=== PATIENT | male | born 1950 | race Caucasian/White ===

== ENCOUNTER 2019-09-22 22:24 | Emergency (ER) | payer MEDICARE, MEDICAID ==
[~2019-09-22] VITALS: Ht 182 cm; Wt 115.0 kg
--- OUTSIDE RECORDS SUMMARY | 2019-09-22 22:35 | XMS REPORT | Continuity of Care Document ---
Author Organization Unknown Address Unknown Phone Unavailable Allergies There is no data. Medications There is no data. Problems There is no data. Procedures There is no data. Results There is no data. Encounters ACCT No. Visit Date/Time Discharge Status Pt. Type Provider Facility Loc./Unit Complaint [id number] 04/14/2019 08:00:00 04/14/2019 23:5 9:59 CLS Outpatient
[2019-09-22 23:00] LABS: BASOPHILS # (AUTO) 0.1 10^3/uL (0.0-0.1); BASOPHILS % (AUTO) 1 % (0-10); EOSINOPHILS # (AUTO) 0.1 10^3/uL (0.0-0.3); EOSINOPHILS % (AUTO) 1 % (0-10); HEMATOCRIT 36 % (40-54); HEMOGLOBIN 11.4 G/DL (13.3-17.7); LYMPHOCYTES # (AUTO) 3.8 X 10^3 (1.0-4.0); LYMPHOCYTES % (AUTO) 34 % (12-44); MEAN CORPUSCULAR HEMOGLOBIN 28 PG (25-34); MEAN CORPUSCULAR HGB CONC 31 G/DL (32-36); MEAN CORPUSCULAR VOLUME 89 FL (80-99); MEAN PLATELET VOLUME 9.5 FL (7.4-10.4); MONOCYTES # (AUTO) 1.6 X 10^3 (0.0-1.0); MONOCYTES % (AUTO) 15 % (0-12); NEUTROPHILS # (AUTO) 5.5 X 10^3 (1.8-7.8); NEUTROPHILS % (AUTO) 49 % (42-75); PLATELET COUNT 304 10^3/uL (130-400); RED CELL DISTRIBUTION WIDTH 14.2 % (10.0-14.5); WHITE BLOOD COUNT 11.2 10^3/uL (4.3-11.0)
[2019-09-22 23:18] LABS: INR 1.4 (0.8-1.4); PROTHROMBIN TIME PATIENT 17.1 SEC (12.2-14.7)
[2019-09-22 23:20] LABS: BUN/CREATININE RATIO 33; CALCIUM 8.8 MG/DL (8.5-10.1); CARBON DIOXIDE 25 MMOL/L (21-32); CHLORIDE 98 MMOL/L (98-107); CREATININE SERUM 0.69 MG/DL (0.60-1.30); GFR ESTIMATED > 60; GLUCOSE 147 MG/DL (70-105); POTASSIUM 4.4 MMOL/L (3.6-5.0); SODIUM 138 MMOL/L (135-145)
[2019-09-23 00:12] VITALS: BP 112/68
--- NOTE | 2019-09-23 05:50 | ED GU-Male ---
General Chief Complaint: - Urinary Stated Complaint: URINARY ISSUES Nursing Triage Note: Pt came from [facility] via [place] with bleeding from his penis. According to ems, [facility] staff tried to insert a catheter around 2129 tonight and returned to his room around 2144 and pt had blood coming from his penis. Upon arrival, bleeding had subsided. Source: patient Exam Limitations: clinical condition History of Present Illness Date Seen by Provider: September 23, 2019 Time Seen by Provider: 22:30 Initial Comments Patient is a 69-year-old prison patient who presents with urethral bleeding after traumatic Short catheter insertion at prison. Patient has blood at urethral meatus. Does not appear to be in distress. Is alert but confused. Bladder scan reveals no urine. Patient is not on anticoagulation therapy. Timing/Duration: just prior to arrival Severity/Quality: mild Location: urethral, other Radiation: none Activities at Onset: none Prior Genitourinary Problems: recent trauma Allergies and Home Medications Allergies Coded Allergies: Penicillins (Verified Allergy, Unknown, 09/22/19) morphine (Verified Allergy, Unknown, 09/22/19) tramadol (Verified Allergy, Unknown, 09/22/19) Patient Home Medication List Home Medication List Reviewed: Yes Review of Systems Review of Systems Constitutional: no symptoms reported EENTM: no symptoms reported Respiratory: no symptoms reported Cardiovascular: no symptoms reported Gastrointestinal: no symptoms reported Genitourinary: see HPI Musculoskeletal: no symptoms reported Skin: no symptoms reported Psychiatric/Neurological: No Symptoms Reported Endocrine: No Symptoms Reported Hematologic/Lymphatic: No Symptoms Reported Past Pfyggzd-Vdvvnd-Vqmwdw Hx Past Med/Social Hx: Reviewed Nursing Past Med/Soc Hx Patient Social History Alcohol Use: Denies Use Recreational Drug Use: No Smoking Status: Never a Smoker 2nd Hand Smoke Exposure: No Recent Foreign Travel: No Contact w/Someone Who Travel: No Recent Infectious Disease Expo: No Recent Hopitalizations: No Physical Abuse: No Sexual Abuse: No Past Medical History Surgeries: No Respiratory: No Cardiac: Yes Atrial Fibrillation, High Cholesterol, Hypertension Neurological: No Genitourinary: No Gastrointestinal: No Musculoskeletal: No Endocrine: Yes Diabetes, Non-Insulin dep HEENT: No Cancer: No Psychosocial: Yes Anxiety, Bipolar, Depression Integumentary: No Blood Disorders: No Physical Exam Vital Signs Vital Signs - First Documented 09/22/19 22:27 Temp 37.8 Pulse 65 Resp 16 B/P (MAP) 106/62 (77) Pulse Ox 94 O2 Delivery Room Air Capillary Refill : Less Than 3 Seconds Height, Weight, BMI Height: '" Weight: lbs. oz. kg; 34.00 BMI Method: General Appearance: WD/WN, no apparent distress HEENT: PERRL/EOMI, pharynx normal Neck: full range of motion Cardiovascular: regular rate, rhythm Respiratory: chest non-tender, lungs clear Gastrointestinal: non tender, soft Genital/Rectal: other (blood at urethral meatus, no active bleeding) Focused Exam Sepsis Stage: Ruled Out Progress/Results/Core Measures Suspected Sepsis Recent Fever Within 48 Hours: No Infection Criteria Present: None New/Unexplained Altered Menta: No Sepsis Screen: No Definite Risk SIRS Temperature: Pulse: 62 Respiratory Rate: 16 Laboratory Tests 09/22/19 22:54: White Blood Count 11.2H Blood Pressure 112 /68 Mean: 77 Laboratory Tests 09/22/19 22:54: Creatinine 0.69, INR Comment 1.4, Platelet Count 304 Results/Orders Lab Results Laboratory Tests Test 09/22/19 22:54 Range/Units White Blood Count 11.2 H 4.3-11.0 10^3/uL Red Blood Count 4.11 L 4.35-5.85 10^6/uL Hemoglobin 11.4 L 13.3-17.7 G/DL Hematocrit 36 L 40-54 % Mean Corpuscular Volume 89 80-99 FL Mean Corpuscular Hemoglobin 28 25-34 PG Mean Corpuscular Hemoglobin Concent 31 L 32-36 G/DL Red Cell Distribution Width 14.2 10.0-14.5 % Platelet Count 304 130-400 10^3/uL Mean Platelet Volume 9.5 7.4-10.4 FL Neutrophils (%) (Auto) 49 42-75 % Lymphocytes (%) (Auto) 34 12-44 % Monocytes (%) (Auto) 15 H 0-12 % Eosinophils (%) (Auto) 1 0-10 % Basophils (%) (Auto) 1 0-10 % Neutrophils # (Auto) 5.5 1.8-7.8 X 10^3 Lymphocytes # (Auto) 3.8 1.0-4.0 X 10^3 Monocytes # (Auto) 1.6 H 0.0-1.0 X 10^3 Eosinophils # (Auto) 0.1 0.0-0.3 10^3/uL Basophils # (Auto) 0.1 0.0-0.1 10^3/uL Prothrombin Time 17.1 H 12.2-14.7 SEC INR Comment 1.4 0.8-1.4 Sodium Level 138 135-145 MMOL/L Potassium Level 4.4 3.6-5.0 MMOL/L Chloride Level 98 98-107 MMOL/L Carbon Dioxide Level 25 21-32 MMOL/L Anion Gap 15 H 5-14 MMOL/L Blood Urea Nitrogen 23 H 7-18 MG/DL Creatinine 0.69 0.60-1.30 MG/DL Estimat Glomerular Filtration Rate > 60 BUN/Creatinine Ratio 33 Glucose Level 147 H 70-105 MG/DL Calcium Level 8.8 8.5-10.1 MG/DL My Orders Orders - DESHAUN LEARY DO Bladder Scan (09/22/19 22:35) Cbc With Automated Diff (09/22/19 22:35) Basic Metabolic Panel (09/22/19 22:35) Protime With Inr (09/22/19 22:35) Vital Signs/I&O 09/22/19 09/23/19 22:27 00:12 Temp 37.8 Pulse 65 62 Resp 16 16 B/P (MAP) 106/62 (77) 112/68 (77) Pulse Ox 94 92 O2 Delivery Room Air Capillary Refill : Less Than 3 Seconds Blood Pressure Mean: 77 Departure Communication (Admissions) Patient is able to urinate prior to ED departure. Will return to prison with urology follow-up as needed Impression Primary Impression: Urethral trauma Disposition: 01 HOME, SELF-CARE Condition: Stable/Unchanged Departure-Patient Inst. Add. Discharge Instructions: Juancarlos was evaluated in the ED for bleeding around his urethra. The bleeding has stopped and a bladder scan does not show evidence of urinary retention. All discharge instructions reviewed with patient and/or family. Voiced understanding. DESHAUN LEARY DO September 23, 2019 05:50
== END 2019-09-23 00:20 | disposition home or self-care (01) ==
LOC: EDUNIT# 22:24 → ER FS 22:25
DX: S37.39XA Other injury of urethra, initial encounter (principal); E11.9 Type 2 diabetes mellitus without complications; Z88.0 Allergy status to penicillin; Z88.5 Allergy status to narcotic agent; Y73.2 Prosthetic and other implants, materials and accessory gastroenterology and urology devices associated with adverse incidents; Y92.129 Unspecified place in nursing home as the place of occurrence of the external cause
CPT/HCPCS: 36415; 80048; 85025; 85610; 99283

== ENCOUNTER → 2019-09-22 | Outpatient (CLI) | payer SELFPAY ==
[2019-09-22 19:09] LABS: BACTERIA,URINE FEW /HPF; BILIRUBIN,URINE NEGATIVE (NEGATIVE); CLARITY,URINE CLEAR; COLOR,URINE YELLOW; GLUCOSE, URINE (UA) NEGATIVE (NEGATIVE); KETONES,URINE NEGATIVE (NEGATIVE); LEUKOCYTE ESTERASE ,URINE NEGATIVE (NEGATIVE); NITRITE,URINE NEGATIVE (NEGATIVE); PH,URINE 5.5 (5-9); PROTEIN,URINE NEGATIVE (NEGATIVE)
== END ==
LOC: LAB FS 18:41
PROVIDERS: ATTEND Pediatrics
DX: R35.0 Frequency of micturition (principal); R30.0 Dysuria; R31.9 Hematuria, unspecified
CPT/HCPCS: 81000; 87088

== ENCOUNTER 2020-01-11 21:16 | Inpatient (IN) | payer MEDICARE, MEDICAID ==
[~2020-01-11] VITALS: Ht 182 cm; Wt 104.5 kg
--- NOTE | 2020-01-11 21:29 | ED Dyspnea ---
General Stated Complaint: SOB Source of Information: EMS Exam Limitations: Other (pt condition) History of Present Illness Date Seen by Provider: Jan 11, 2020 Time Seen by Provider: 21:15 Initial Comments The patient is a 69-year-old male brought in by EMS from prison for evaluation of shortness of breath, fever, and general malaise. [facility] report a cough and some shortness of breath over the last 24 hours which progressively worsen this evening. When EMS arrived the patient's saturation was approximately 82%. The patient is normally alert and talkative but has been less active this evening. 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 EMS reports an axillary temperature of just over 100F. He was given a DuoNeb in route and his oxygen saturation is 98% upon arrival. EMS reports that his workup breathing has improved significantly. Severity: Moderate Modifying Factors: Improves With Albuterol Nebulizer (helps), Improves With Oxygen (helps) Associated Symptoms: Cough, Fever, Weakness Allergies and Home Medications Allergies Coded Allergies: Penicillins (Verified Allergy, Unknown, 09/22/19) morphine (Verified Allergy, Unknown, 09/22/19) tramadol (Verified Allergy, Unknown, 09/22/19) Patient Home Medication List Home Medication List Reviewed: Yes Review of Systems Review of Systems Constitutional: fever, malaise, weakness EENTM: no symptoms reported Respiratory: cough, short of breath Cardiovascular: no symptoms reported Gastrointestinal: no symptoms reported Genitourinary: no symptoms reported Musculoskeletal: no symptoms reported Skin: no symptoms reported Psychiatric/Neurological: No Symptoms Reported Endocrine: No Symptoms Reported Hematologic/Lymphatic: No Symptoms Reported All Other Systems Reviewed Negative Unless Noted: Yes Past Iqrsfnf-Yhticu-Lzlprx Hx Past Med/Social Hx: Reviewed Nursing Past Med/Soc Hx Patient Social History 2nd Hand Smoke Exposure: No Recent Foreign Travel: No Contact w/Someone Who Travel: No Recent Hopitalizations: No Past Medical History Surgeries: No Respiratory: No Cardiac: Yes Atrial Fibrillation, High Cholesterol, Hypertension Neurological: No Genitourinary: No Gastrointestinal: No Musculoskeletal: No Endocrine: Yes Diabetes, Non-Insulin dep HEENT: No Cancer: No Psychosocial: Yes Anxiety, Bipolar, Depression Integumentary: No Blood Disorders: No Physical Exam Vital Signs Vital Signs - First Documented 01/11/20 22:09 Temp 37.0 Pulse 133 Resp 18 B/P (MAP) 134/88 (103) Pulse Ox 98 O2 Delivery Nasal Cannula O2 Flow Rate 4.00 Capillary Refill : Height, Weight, BMI Height: '" Weight: lbs. oz. kg; 34.00 BMI Method: General Appearance: No Apparent Distress, WD/WN HEENT: PERRL/EOMI, Pharynx Normal Neck: Full Range of Motion, Normal Inspection, Supple Respiratory: Normal Breath Sounds; No No Respiratory Distress; Respiratory Distress (mild), Other (tachypnea) Cardiovascular: Irregularly Irregular, Tachycardia Gastrointestinal: Normal Bowel Sounds, Non Tender, Soft Extremity: Normal Capillary Refill, Normal Inspection, Normal Range of Motion Neurologic/Psychiatric: Alert, No Motor/Sensory Deficits, Normal Mood/Affect Skin: Warm/Dry, Pallor Focused Exam Lactate Level 01/11/20 21:35: Lactic Acid Level 1.63 Lactic Acid Level Laboratory Tests Test 01/11/20 21:35 Lactic Acid Level 1.63 MMOL/L (0.50-2.00) Progress/Results/Core Measures Results/Orders Lab Results Laboratory Tests Test 01/11/20 21:30 01/11/20 21:35 Range/Units White Blood Count 16.5 H 4.3-11.0 10^3/uL Red Blood Count 4.00 L 4.35-5.85 10^6/uL Hemoglobin 11.2 L 13.3-17.7 G/DL Hematocrit 36 L 40-54 % Mean Corpuscular Volume 91 80-99 FL Mean Corpuscular Hemoglobin 28 25-34 PG Mean Corpuscular Hemoglobin Concent 31 L 32-36 G/DL Red Cell Distribution Width 15.3 H 10.0-14.5 % Platelet Count 451 H 130-400 10^3/uL Mean Platelet Volume 8.7 7.4-10.4 FL Neutrophils (%) (Auto) 52 42-75 % Lymphocytes (%) (Auto) 35 12-44 % Monocytes (%) (Auto) 10 0-12 % Eosinophils (%) (Auto) 2 0-10 % Basophils (%) (Auto) 1 0-10 % Neutrophils # (Auto) 8.7 H 1.8-7.8 X 10^3 Lymphocytes # (Auto) 5.8 H 1.0-4.0 X 10^3 Monocytes # (Auto) 1.6 H 0.0-1.0 X 10^3 Eosinophils # (Auto) 0.2 0.0-0.3 10^3/uL Basophils # (Auto) 0.1 0.0-0.1 10^3/uL Neutrophils % (Manual) 50 % Lymphocytes % (Manual) 42 % Monocytes % (Manual) 5 % Eosinophils % (Manual) 2 % Basophils % (Manual) 0 % Band Neutrophils 1 % Sodium Level 134 L 135-145 MMOL/L Potassium Level 4.0 3.6-5.0 MMOL/L Chloride Level 98 98-107 MMOL/L Carbon Dioxide Level 24 21-32 MMOL/L Anion Gap 12 5-14 MMOL/L Blood Urea Nitrogen 24 H 7-18 MG/DL Creatinine 0.67 0.60-1.30 MG/DL Estimat Glomerular Filtration Rate > 60 BUN/Creatinine Ratio 36 Glucose Level 121 H 70-105 MG/DL Lactic Acid Level 1.63 0.50-2.00 MMOL/L Calcium Level 8.9 8.5-10.1 MG/DL Corrected Calcium 9.5 8.5-10.1 MG/DL Total Bilirubin 0.3 0.1-1.0 MG/DL Aspartate Amino Transf (AST/SGOT) 8 5-34 U/L Alanine Aminotransferase (ALT/SGPT) < 5 0-55 U/L Alkaline Phosphatase 93 40-136 U/L Troponin I < 0.30 <0.30 NG/ML Pro-B-Type Natriuretic Peptide 809.1 H <75.0 PG/ML Total Protein 7.3 6.4-8.2 GM/DL Albumin 3.2 3.2-4.5 GM/DL My Orders Orders - MEMO RUSHING DO Cbc With Automated Diff (01/11/20 21:24) Comprehensive Metabolic Panel (01/11/20 21:24) Lactic Acid Analyzer (01/11/20 21:24) Procalcitonin (Pct) (01/11/20 21:24) Ua Culture If Indicated (01/11/20 21:24) Blood Culture (01/11/20 21:24) Ekg Tracing (01/11/20 21:24) Continuous Ekg Monitoring (01/11/20 21:24) Troponin I Fs (01/11/20 21:24) Probnp Fs (01/11/20 21:24) Chest 1 View Ap/Pa Only (01/11/20 21:24) Coronavirus Sars-Cov-2 So 2019 (01/11/20 21:24) Acetaminophen Tablet (Tylenol Tablet) (01/11/20 21:30) Ns Iv 1000 Ml (Sodium Chloride 0.9%) (01/11/20 21:30) Blood Culture (01/11/20 21:30) Manual Differential (01/11/20 21:35) Dexamethasone Injection (Decadron Injec (01/11/20 22:30) Azithromycin Injection (Zithromax Inject (01/11/20 22:30) Crp Fs (01/11/20 21:30) Medications Given in ED Current Medications Medications Dose Ordered Sig/Trini Route Start Time Stop Time Status Last Admin Dose Admin Acetaminophen 1,000 mg ONCE ONCE PO 01/11/20 21:30 01/11/20 21:31 DC 01/11/20 21:42 1,000 MG Vital Signs/I&O 01/11/20 22:09 Temp 37.0 Pulse 133 Resp 18 B/P (MAP) 134/88 (103) Pulse Ox 98 O2 Delivery Nasal Cannula O2 Flow Rate 4.00 Progress Progress Note : Progress Note @2225 - patient updated on lab and imaging results. He is agreeable to admission. Dr. Artis excepts the admission at [facility]. She would like a dose of Decadron and azithromycin to be given. She would like the patient admitted to [facility] with telemetry monitoring. Comment @2144 - Atrial fibrillation with a rapid ventricular response, rate of 133, normal axis, no acute ischemic findings noted, no STEMI, reviewed and interpreted by myself Diagnostic Imaging Diagonstic Imaging: Xray Comments [facility]. [place], [place] NAME: NATALIA LEZAMABETY Jarrell [facility] REC#: [id number] PT STATUS: REG ER : 1950 PHYSICIAN: MEMO RUSHING DO ADMIT DATE: 01/11/20/ER FS Draft Date of Exam:01/11/20 CHEST 1 VIEW AP/PA ONLY EXAM: Chest 1 view AP/PA only INDICATION: Fever. Dyspnea. Respiratory distress. COMPARISON: None. FINDINGS: Heart size is accentuated by low lung volumes. Normal central pulmonary vascularity. No focal pulmonary opacity, pleural effusion or pneumothorax. No acute osseous finding. IMPRESSION: Low lung volumes. Chest is otherwise unremarkable. Dictated on workstation # [id number] Dict: 01/11/202152 Trans: 01/11/202155 [facility] [id number] Interpreted by: AARON ACBA MD Electronically signed by: Critical Care Note Critical Care Start Time: 21:40 Stop Time: 22:20 Total Time (minutes) 40 Progress Interpretation of lab and imaging results, arranging admission and discussion with consultants, evaluating response to treatment, prevention of respiratory and cardiac failure Departure Communication (Admissions) Time/Spoke to Admitting Phy: 22:35 Dr. Artis accepts the admission to [facility] Impression Primary Impression: Acute respiratory failure Additional Impression: Atrial fibrillation with RVR Disposition: ADMITTED INPATIENT Condition: Stable Admissions Decision to Admit Reason: Admit from ER (General) Decision to Admit/Date: Jan 11, 2020 Time/Decision to Admit Time: 22:25 Departure-Patient Inst. Referrals: RONAL VYAS MD (PCP/Family) Primary Care Physician MEMO RUSHING DO Jan 11, 2020 21:29
[2020-01-11] MEDS ORDERED: NS IV 1000 ML 1,000 ML IV SCH (21:30)
[2020-01-11] MEDS ORDERED: ACETAMINOPHEN 500 MG TAB (TYLENOL) PO ONE (21:30)
[2020-01-11 21:46] LABS: BASOPHILS % (AUTO) 1 % (0-10); EOSINOPHILS % (AUTO) 2 % (0-10); HEMATOCRIT 36 % (40-54); HEMOGLOBIN 11.2 G/DL (13.3-17.7); LYMPHOCYTES % (AUTO) 35 % (12-44); MEAN CORPUSCULAR HEMOGLOBIN 28 PG (25-34); MEAN CORPUSCULAR HGB CONC 31 G/DL (32-36); MEAN CORPUSCULAR VOLUME 91 FL (80-99); MEAN PLATELET VOLUME 8.7 FL (7.4-10.4); MONOCYTES % (AUTO) 10 % (0-12); NEUTROPHILS % (AUTO) 52 % (42-75); PLATELET COUNT 451 10^3/uL (130-400); WHITE BLOOD COUNT 16.5 10^3/uL (4.3-11.0)
[2020-01-11 21:47] LABS: BASOPHILS # (AUTO) 0.1 10^3/uL (0.0-0.1); EOSINOPHILS # (AUTO) 0.2 10^3/uL (0.0-0.3); LYMPHOCYTES # (AUTO) 5.8 X 10^3 (1.0-4.0); MONOCYTES # (AUTO) 1.6 X 10^3 (0.0-1.0); NEUTROPHILS # (AUTO) 8.7 X 10^3 (1.8-7.8)
--- NOTE | 2020-01-11 21:56 | Diagnostic Imaging Report ---
EXAM: Chest 1 view AP/PA only INDICATION: Fever. Dyspnea. Respiratory distress. COMPARISON: None. FINDINGS: Heart size is accentuated by low lung volumes. Normal central pulmonary vascularity. No focal pulmonary opacity, pleural effusion or pneumothorax. No acute osseous finding. IMPRESSION: Low lung volumes. Chest is otherwise unremarkable. Dictated by: Dictated on workstation # [id number]
[2020-01-11 22:02] LABS: BAND NEUTROPHILS 1 %; BASOPHILS % (MANUAL) 0 %; EOSINOPHILS % (MANUAL) 2 %; LYMPHOCYTES % (MANUAL) 42 %; MONOCYTES % (MANUAL) 5 %; NEUTROPHILS % (MANUAL) 50 %
[2020-01-11 22:13] LABS: ALANINE AMINOTRANSFERASE < 5 U/L (0-55); ALKALINE PHOSPHATASE 93 U/L (40-136); BILIRUBIN,TOTAL 0.3 MG/DL (0.1-1.0); BUN/CREATININE RATIO 36; CALCIUM 8.9 MG/DL (8.5-10.1); CARBON DIOXIDE 24 MMOL/L (21-32); CHLORIDE 98 MMOL/L (98-107); CREATININE SERUM 0.67 MG/DL (0.60-1.30); GFR ESTIMATED > 60; GLUCOSE 121 MG/DL (70-105); SODIUM 134 MMOL/L (135-145)
[2020-01-11 22:14] LABS: ALBUMIN 3.2 GM/DL (3.2-4.5); TOTAL PROTEIN 7.3 GM/DL (6.4-8.2)
[2020-01-11] MEDS ORDERED: AZITHROMYCIN INJECTION 500 MG in NS (IVPB) 250 ML IV ONE (22:30)
[2020-01-12] MEDS ORDERED: NS IV 1000 ML 1,000 ML ONE (00:47)
[2020-01-12 01:02] VITALS: BP 102/60
[2020-01-12] MEDS ORDERED: NS IV 1000 ML 1,000 ML IV SCH (03:30)
[2020-01-12 03:49] VITALS: BP 130/71
[2020-01-12 06:20] LABS: BASOPHILS % (AUTO) 0 % (0-10); EOSINOPHILS % (AUTO) 0 % (0-10); HEMATOCRIT 34 % (40-54); HEMOGLOBIN 10.6 G/DL (13.3-17.7); LYMPHOCYTES # (AUTO) 0.9 X 10^3 (1.0-4.0); LYMPHOCYTES % (AUTO) 9 % (12-44); MEAN CORPUSCULAR HEMOGLOBIN 29 PG (25-34); MEAN CORPUSCULAR HGB CONC 32 G/DL (32-36); MEAN CORPUSCULAR VOLUME 91 FL (80-99); MEAN PLATELET VOLUME 9.2 FL (7.4-10.4); MONOCYTES # (AUTO) 0.2 X 10^3 (0.0-1.0); MONOCYTES % (AUTO) 2 % (0-12); NEUTROPHILS # (AUTO) 9.3 X 10^3 (1.8-7.8); NEUTROPHILS % (AUTO) 89 % (42-75); PLATELET COUNT 362 10^3/uL (130-400); WHITE BLOOD COUNT 10.5 10^3/uL (4.3-11.0)
[2020-01-12 06:28] LABS: ALBUMIN 3.3 GM/DL (3.2-4.5)
[2020-01-12 06:29] LABS: CHLORIDE 106 MMOL/L (98-107); POTASSIUM 4.2 MMOL/L (3.6-5.0); SODIUM 138 MMOL/L (135-145)
[2020-01-12 06:30] LABS: CALCIUM 8.6 MG/DL (8.5-10.1)
[2020-01-12 06:31] LABS: GLUCOSE 109 MG/DL (70-105); TOTAL PROTEIN 6.2 GM/DL (6.4-8.2)
[2020-01-12 06:32] LABS: CARBON DIOXIDE 21 MMOL/L (21-32)
[2020-01-12 06:33] LABS: BILIRUBIN,TOTAL 0.5 MG/DL (0.1-1.0)
[2020-01-12 06:35] LABS: ALKALINE PHOSPHATASE 99 U/L (40-136); CREATININE SERUM 0.86 MG/DL (0.60-1.30); GFR ESTIMATED > 60
[2020-01-12 06:36] LABS: BUN/CREATININE RATIO 21
[2020-01-12 06:38] LABS: ALANINE AMINOTRANSFERASE 33 U/L (0-55)
[2020-01-12 07:19] VITALS: BP 127/74
[2020-01-12] MEDS ORDERED: MAGN400T39 PO (08:56)
[2020-01-12] MEDS ORDERED: LORA10TA7 PO (08:56)
[2020-01-12] MEDS ORDERED: GLYC1SUP RC (08:56)
[2020-01-12] MEDS ORDERED: QUET100T33 PO (08:56)
[2020-01-12] MEDS ORDERED: LACT10SO PO (08:56)
[2020-01-12] MEDS ORDERED: FLUT16SP22 NSEACH (08:56)
[2020-01-12] MEDS ORDERED: ALLO300T2 PO (08:56)
[2020-01-12] MEDS ORDERED: GABA300C PO (08:56)
[2020-01-12] MEDS ORDERED: LORA-405 PO (08:56)
[2020-01-12] MEDS ORDERED: DILT240C91 PO (08:56)
[2020-01-12] MEDS ORDERED: METH500T7 PO (08:56)
[2020-01-12] MEDS ORDERED: HYDR-4164 PO (08:56)
[2020-01-12] MEDS ORDERED: POTA20TA15 PO (08:56)
[2020-01-12] MEDS ORDERED: ACET-2267 PO (08:56)
[2020-01-12] MEDS ORDERED: AMIT50TA3 PO (08:56)
[2020-01-12] MEDS ORDERED: DOCU100T2 PO (08:56)
[2020-01-12] MEDS ORDERED: CYAN500T62 PO (08:56)
[2020-01-12] MEDS ORDERED: OXCA300T18 PO (08:56)
[2020-01-12] MEDS ORDERED: METF-397 PO (08:56)
[2020-01-12] MEDS ORDERED: HYDR25SU28 RC (08:56)
[2020-01-12] MEDS ORDERED: DICL100G31 TD (08:56)
[2020-01-12] MEDS ORDERED: APIX5TAB PO (08:56)
[2020-01-12] MEDS ORDERED: ATOR10TA66 PO (08:56)
[2020-01-12] MEDS ORDERED: OLOP2.5D6 OU (08:56)
[2020-01-12] MEDS ORDERED: FURO20TA4 PO (08:56)
[2020-01-12] MEDS ORDERED: SENN1TAB67 PO (08:56)
[2020-01-12] MEDS ORDERED: OMEP20CA18 PO (08:56)
[2020-01-12] MEDS ORDERED: HYDR20TA2 PO (08:56)
[2020-01-12] MEDS ORDERED: METO50TA15 PO (08:56)
[2020-01-12] MEDS ORDERED: POLY17PO31 PO (08:56)
--- NOTE | 2020-01-12 09:06 | NUR ---
THE MED REC WAS ENTERED USING THE ORDER SUMMARY REPORT FROM [facility] THERE WERE MEDS ON THE EXT MED HISTORY THAT HAD BEEN FILLED IN DECEMBER 2019 THAT WERE NOT LISTED WITH [employer]. I CALLED THE FACILITY AND SPOKE WITH CARLITA WHO LET ME KNOW THAT ON 12-26-2019 THE PT WAS TRANSFERRED TO [facility] IN [place] FROM [facility] AND THEN WENT BACK TO [facility] ON 01-03-2020. WHILE AT [place] THERE WERE MULTIPLE MEDICATIONS THAT WERE DISCONTINUED (DULOXETINE, CARBIDOPA/LEVODOPA, DEPAKOTE).
[2020-01-12 10:58] VITALS: BP 120/62
--- NOTE | 2020-01-12 11:03 | NUR ---
Received dietary consult for MST score. Note pt is currently COVID PUI. Will monitor PO intake and have full assessment on 01/14. Rodrick Fong, MS, RD, LD
[2020-01-12] MEDS ORDERED: ACETAMINOPHEN 500 MG TAB (TYLENOL) PO PRN (11:30)
[2020-01-12] MEDS ORDERED: LACTULOSE 10 GM/15 ML 30 ML POUR BOTTLE FOR ENEMA PO PRN (11:30)
[2020-01-12] MEDS ORDERED: polyethylene glycoL POWDER 17 GM (MIRALAX) PACK PO PRN (11:30)
[2020-01-12] MEDS ORDERED: LACTULOSE SYRUP 10GM/15ML (ENULOSE) 30ML UDC PO PRN (12:30)
[2020-01-12] MEDS: GABAPENTIN 300 MG (NEURONTIN) CAP PO SCH ×2 (12:39→20:50)
--- NOTE | 2020-01-12 14:55 | History & Physical-Hospitalist ---
History of Present Illness HPI/Chief Complaint Pt is a 69yoCM with a PMH of COPD, HTN, atrial fibrillation who presented to the ER due to cough and SOB for the past 24 hours. He was brought in by EMS due to oxygen sats of 82%. He was confused as well which is unlike him. He reported had an axillary temp of over 100 as well. He is from a [facility] with one known positive C OVID case. He states that he is feeling much better today and breathing easier. 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 Source: patient Date Seen 01/12/20 Time Seen by a Provider: 14:46 Attending Physician Orly Artis MD PCP Sampson Hudson MD Referring Physician Date of Admission Jan 11, 2020 at 22:25 Home Medications & Allergies Home Medications Reviewed patient Home Medication Reconciliation performed by pharmacy medication reconciliations hydroelectric plant technician and/or nursing. Patients Allergies have been reviewed. Allergies Allergies Coded Allergies Penicillins (Verified Allergy, Unknown, 09/22/19) morphine (Verified Allergy, Unknown, 09/22/19) tramadol (Verified Allergy, Unknown, 09/22/19) Past Jfykjqe-Luidub-Iewhuz Hx Past Med/Social Hx: Reviewed Nursing Past Med/Soc Hx Patient Social History Employed/Student: retired Alcohol Use: Denies Use Recreational Drug Use: No Smoking Status: Never a Smoker 2nd Hand Smoke Exposure: No Recent Foreign Travel: No Recent Hopitalizations: No Past Medical History Cardiac: Atrial Fibrillation, High Cholesterol, Hypertension Endocrine: Diabetes, Non-Insulin dep Psychosocial: Anxiety, Bipolar, Depression History of Blood Disorders: No Family History Reviewed Nursing Family Hx No Pertinent Family Hx Review of Systems Constitutional: fever, malaise Respiratory: cough, short of breath Cardiovascular: No chest pain, No palpitations Gastrointestinal: No abdominal pain, No constipation, No loss of appetite, No nausea, No vomiting Genitourinary: No dysuria, No frequency Musculoskeletal: no symptoms reported Skin: no symptoms reported Psychiatric/Neurological: No Symptoms Reported Physical Exam Physical Exam Vital Signs Vital Signs - First Documented 01/11/20 22:09 Temp 37.0 Pulse 133 Resp 18 B/P (MAP) 134/88 (103) Pulse Ox 98 O2 Delivery Nasal Cannula O2 Flow Rate 4.00 Capillary Refill : Less Than 3 Seconds Height, Weight, BMI Height: '" Weight: lbs. oz. kg; 31.54 BMI Method: General Appearance: No Apparent Distress, Chronically ill, Obese HEENT: PERRL/EOMI, Moist Mucous Membranes; No Scleral Icterus (L), No Scleral Icterus (R) Neck: Normal Inspection, Supple Respiratory: Lungs Clear, No Accessory Muscle Use, Other (on 2lpm) Cardiovascular: Regular Rate, Rhythm, No Murmur Gastrointestinal: Normal Bowel Sounds, No Organomegaly, Soft Extremity: No Calf Tenderness, No Pedal Edema Neurologic/Psychiatric: Alert, Oriented x3, Normal Mood/Affect Skin: Normal Color, Warm/Dry Results Results/Procedures Labs Laboratory Tests 01/11/20 21:35 01/12/20 05:33 Patient resulted labs reviewed. Assessment/Plan Admission Diagnosis Acute Hypoxic Respiratory Failure COPD Exacerbation COVID PUI Continue steroids MAT protocol Advair COVID pending Wean oxygen as able a-fib with RVR rate controlled from ER Continue Lopressor and Cardizem Continue Eliquis HTN neuropathy HLD Gout no acute management needs, continue home meds Admission Status: Inpatient Order (span 2 midnights) Reason for Inpatient Admission: see above Clinical Quality Measures DVT/VTE Risk/Contraindication: Risk Factor Score Per Nursin RFS Level Per Nursing on Admit: 4+=Very High NARA KEE MD Jan 12, 2020 14:55
--- NOTE | 2020-01-12 15:56 | Occupational Therapy Eval ---
OT Evaluation-General/PLF Medical Diagnosis Admission Date Jan 11, 2020 at 22:25 Medical Diagnosis: SOB; AMS Onset Date: Jan 12, 2020 Therapy Diagnosis Therapy Diagnosis: Decreased ADL status Precautions Precautions/Isolations: Droplet Isolation, Fall Prevention, Standard Precautions Referral Physician: Lottie Referral Reason: Activity Tolerance, Self Care, Evaluation/Treatment, Strengthening/ROM Medical History Pertinent Medical History: Atrial Fib, DM, HTN Additional Medical History COPD, HTN, a fib, NIDDM, neuropathy, acute respiratory failure, anx/ depression, bipolar disorder. Current History Pt admits from [place] to [place] with c/o SOB, fever, malaide for ~24 hours. Per [place] staff, 02 sats in low 80's. Pt had 100* temp, AMS. Exposed to COVID through staff, PUI at this time. Reviewed History: Yes Social History Home: [facility] ADL-Prior Level of Function SCALE: Activities may be completed with or without assistive devices. 6-Ihzkxqojoh-mxxnhpz completes the activity by him/herself with no assistance from a helper. 5-Set-up or Clean-up Assistance-helper sets up or cleans up; patient completes activity. [place] assists only prior to or following the activity. 4-Supervision or Touching Assistance-helper provides verbal cues and/or touching/steadying and/or contact guard assistance as patient completes activity. Assistance may be provided throughout the activity or intermittently. 3-Partial/Moderate Assistance-helper does LESS THAN HALF the effort. [place] lifts, holds or supports trunk or limbs, but provides less than half the effort. 2-Substantial/Maximal Assistance-helper does MORE THAN HALF the effort. [place] lifts or holds trunk or limbs and provides more than half the effort. 2-Quxvjadhg-uxfrxh does ALL the effort. Patient does none of the effort to complete the activity. Or, the assistance of 2 or more helpers is required for the patient to complete the activity. If activity was not attempted, code reason: 7-Patient Refused. 9-Not Applicable-not attempted and the patient did not perform the activity be fore the current illness, exacerbation or injury. 10-Not Attempted due to Environmental Limitations-(lack of equipment, weather restraints, etc.). 88-Not Attempted due to Medical Conditions or Safety Concerns. ADL PLOF Comments Pt unable to state PLOF. Pt talkative, though does not answer direct questions at times and is difficult to redirect. Self Care: Unknown Functional Cognition: Needed Some Help DME/Equipment Comments w/c (in room). Occupation: retired. Drive Self: No OT Current Status Subjective Pt's nurses notified of orders, agree to OT entry. Pt in bed, alert/ oriented to person/ place/ situation though requires redirection through session. Pt agrees to OT eval/ treat. Denies pain, then grimaces during movement. Mental Status/Objective Patient Orientation: Person, Place, Situation Attachments: IV, Oxygen (2L) Current Glasses/Contacts: No Hearing Aids: No Dentures/Partials: No Hand Dominance: Right Upper Extremity ROM shoulder flexion to 90*, unable to hold for prolonged time EOB all other joints WFL Upper Extremity Coordination WFL BUE Upper Extremity Sensation DNT Upper Extremity Strength Decreased UE strength (3/5) Edema: none noted. ADL-Treatment On/Off Footwear (QC): 10 (Pt typically utilizes sock aide and dressing stick for sock doff/ donning.) Toileting Hygiene (QC): 1 (per clinical judgment, requirement of 2 clinicians for completion.) Other Treatments Pt seen in bed. Pt educated on OT role. Pt receives 23/11 care. States hx of back/ cervical surgeries. Decreased vision, states need to scan room during tasks. Pt utilizes AE for LB dressing tasks, states has not ambulated in months, utilizes w/c at [place]. Pt requires encouragement for movement, reaches EOB with max A. Pt sits for ~5 min, no c/o SOB, talks throughout. Pt able to stand upon 2 trials with max A x2, pt stands for ~10 sec and requests to sit. Pt max A x2 to return to bed with control. Pt is adjusted in bed and pillow under L side for pressure relief. Education OT Patient Education: Correct positioning, Purpose of tx/functional activities, Safety issues, Transfer techniques Teaching Recipient: Patient Teaching Methods: Demonstration, Discussion Response to Teaching: Verbalize Understanding, Return Demonstration, Reinforcement Needed OT Correction Goals Banking Attorney Goals Time Frame: Jan 19, 2020 Eating (QC): 4 Oral Hygiene (QC): 4 Toileting Hygiene (QC): 2 Shower/Bathe Self (QC): 2 Upper Body Dressing (QC): 4 Lower Body Dressing (QC): 2 On/Off Footwear (QC): 6 (mod I with use of AE) Additional Goals: 1-Demonstrate ADL Tasks, 2-Verbalize Understanding, 3- ImproveStrength/Lissett 1=Demonstrate adherence to instructed precautions during ADL tasks. 2=Patient will verbalize/demonstrate understanding of assistive devices/modifications for ADL. 3=Patient will improve strength/tolerance for activity to enable patient to perform ADL's. OT Education/Plan Problem List/Assessment Assessment: Decreased Activ Tolerance, Decreased UE Strength, Dependent Transfers, Impaired Bed Mobility, Impaired Cognition, Impaired Funct Balance, Impaired I ADL's, Impaired Self-Care Skills, Visual-Perceptual Deficit Discharge Recommendations Plan/Recommendations: Continue POC Therapy Discharge Recommendati: 24 Hour Supervision Treatment Plan/Plan of Care Treatment,Training & Education: Yes Patient would benefit from OT for education, treatment and training to promote independence in ADL's, mobility, safety and/or upper extremity function for ADL's. Plan of Care: ADL Retraining, Functional Mobility, UE Funct Exercise/Act, W/C Management Training Treatment Duration: Jan 19, 2020 Frequency: 5 times per week Estimated Hrs Per Day: .25 hour per day Agreement: Yes Rehab Potential: Fair Time/GCodes Start Time: 15:30 Stop Time: 15:43 Total Time Billed (hr/min): 13 Billed Treatment Time 1MANJEET (13) SEEMA GOYAL OTR Jan 12, 2020 15:55
[2020-01-12 15:57] VITALS: BP 115/62
--- NOTE | 2020-01-12 16:02 | Physical Therapy Evaluation ---
PT Evaluation-General Medical Diagnosis Admission Date Jan 11, 2020 at 22:25 Medical Diagnosis: SOB Onset Date: Jan 11, 2020 Therapy Diagnosis Therapy Diagnosis: impaired mobility, strength, endurance Precautions Precautions/Isolations: Droplet Isolation, Fall Prevention, Standard Precautions Referral Physician: Lottie Reason for Referral: Evaluation/Treatment Medical History Pertinent Medical History: COPD, HTN Additional Medical History Past Medical History Cardiac: Atrial Fibrillation, High Cholesterol, Hypertension Endocrine: Diabetes, Non-Insulin dep Psychosocial: Anxiety, Bipolar, Depression Reviewed History: Yes Social History Home: [facility] Prior Prior Level of Function SCALE: Activities may be completed with or without assistive devices. 6-Zyxrrbkskl-nrusqof completes the activity by him/herself with no assistance from a helper. 5-Set-up or Clean-up Assistance-helper sets up or cleans up; patient completes activity. [place] assists only prior to or following the activity. 4-Supervision or Touching Assistance-helper provides verbal cues and/or touching/steadying and/or contact guard assistance as patient completes activity. Assistance may be provided throughout the activity or intermittently. 3-Partial/Moderate Assistance-helper does LESS THAN HALF the effort. [place] lifts, holds or supports trunk or limbs, but provides less than half the effort. 2-Substantial/Maximal Assistance-helper does MORE THAN HALF the effort. [place] lifts or holds trunk or limbs and provides more than half the effort. 1-Otoxfetkb-obrcqb does ALL the effort. Patient does none of the effort to complete the activity. Or, the assistance of 2 or more helpers is required for the patient to complete the activity. If activity was not attempted, code reason: 7-Patient Refused. 9-Not Applicable-not attempted and the patient did not perform the activity before the current illness, exacerbation or injury. 10-Not Attempted due to Environmental Limitations-(lack of equipment, weather restraints, etc.). 88-Not Attempted due to Medical Conditions or Safety Concerns. Bed Mobility: 3 Transfers (B,C,W/C): 3 PT Evaluation-Current Subjective Patient in bed pre tx, agrees to PT, has a sore throat from coughing but no pain anywhere else. Pt/Family Goals to get stronger Objective Patient Orientation: Person, Confused Attachments: IV ROM/Strength ROM Lower Extremities generally limited, patient resists Strength Lower Extremities 4/5 gross BLE Sensory Vision: Hearing: Functional Sensation Right Lower Extremit: Intact Sensation Left Lower Extremity: Intact Transfers Roll Left to Right (QC): 2 Sit to Lying (QC): 1 Lying to Sitting/Side of Bed(Q: 1 Sit to Stand (QC): 2 Patient was able to stand once with max assist and using a rolling walker, patient was very retropulsive, only stood for about 10 seconds. Balance Sitting Static: Fair Sitting Dynamic: Fair Standing Static: Poor Standing Dynamic: Poor Treatment BLE seated ex x10 (AP, LAQ) Assessment/Needs Patient has impaired mobility, strength, endurance. Patient states he has been non-ambulatory. Poor standing and supine <-> sit. Rehab Potential: Guarded PT Woodworking Craftsman Goals [facility] Goals PT Woodworking Craftsman Goals Time Frame: Jan 19, 2020 Roll Left & Right (QC): 3 Sit to Lying (QC): 3 Lying-Sitting on Side/Bed(QC): 3 Sit to Stand (QC): 3 Chair/Pup-ll-Jdxsn Xfer(QC): 3 PT Plan Problem List Problem List: Activity Tolerance, Functional Strength, Safety, Balance, Gait, Transfer, Bed Mobility, ROM Treatment/Plan Treatment Plan: Continue Plan of Care Treatment Plan: Bed Mobility, Education, Functional Activity [place]iss[place], Functional Strength, Gait, Safety, Therapeutic Exercise, Transfers Treatment Duration: Jan 19, 2020 Frequency: 6 times per week Estimated Hrs Per Day: .25 hour per day Patient and/or Family Agrees t: Yes Safety Risks/Education Patient Education: Correct Positioning, Safety Issues Teaching Recipient: Patient Teaching Methods: Demonstration, Discussion Response to Teaching: Reinforcement Needed Discharge Recommendations Plan Patient will perform bed mobility and transfer training, balance and endurance training, functional strengthening, gait training, and education, to improve functional mobility and independence at home. Therapy Discharge Recommendati: Other, See Comments ([place]) Time/GCodes Time In: 1530 Time Out: 1545 Total Billed Treatment Time: 15 Total Billed Treatment 1 visit YANETH GARCIA PT Jan 12, 2020 16:02
[2020-01-12] MEDS: LORazepam 1 MG (ATIVAN) TAB PO PRN (17:59)
[2020-01-12 20:00] VITALS: BP 130/79
--- NOTE | 2020-01-12 20:30 | NUR ---
THIS RN CALLED DR. KEE AT THIS TIME TO REPORT PT's INCREASED AGITATION. PT HAD BEEN YELLING OUT ALL EVENING. ORDER RECEIVED TO GIVE PT's SCHEDULED DOSE OF SEROQUEL NOW. ORDER ALSO RECEIVED FOR HALDOL 2MG IM Q2 HOURS PRN TO GIVE IF SEROQUEL DID NOT CALM PT DOWN.
[2020-01-12] MEDS: OXcarbazepine (TRILEPTAL) 300 MG TAB PO SCH (20:51)
[2020-01-12] MEDS: PANTOPRAZOLE 20 MG TABLET (PROTONIX) PO SCH (20:51)
[2020-01-12] MEDS: APIXABAN 5 MG (ELIQUIS) TABLET PO SCH (20:52)
[2020-01-12] MEDS: QUEtiapine 100 MG (SEROquel) TAB IMMEDIATE RELEASE PO SCH (20:52)
[2020-01-12] MEDS: HYDROCORTISONE 20 MG (CORTEF) TAB PO SCH (20:53)
[2020-01-12] MEDS: AMITRIPTYLINE 50 MG (ELAVIL) TAB PO SCH (20:54)
[2020-01-12] MEDS: meTOprolol TARTRATE 50 MG (LOPRESSOR) TAB PO SCH (20:55)
[2020-01-12] MEDS: SENNA W/DOCUSATE (SENOKOT S) TABLET PO SCH (20:55)
[2020-01-12] MEDS: FLUTICASONE NASAL SPRAY (FLONASE) 16 GM BTL NS SCH (20:55)
[2020-01-12] MEDS: NAPHA/PHEN (NAPHCON-A, OPCON-A) OP SOLN 15 ML BTL OU SCH (20:56)
[2020-01-12] MEDS ORDERED: OMEPRAZOLE 20 MG (PriLOSEC) CAP NON-FORMULARY PO SCH (21:00)
[2020-01-12] MEDS ORDERED: NON-FORMULARY MEDICATION 1 EA EA (Hydrocortisone 10 MG) PO SCH (21:00)
[2020-01-12] MEDS ORDERED: HALOPERIDOL 5 MG/ML (HALDOL) VIAL ONE (21:54)
[2020-01-12] MEDS: HALOPERIDOL 5 MG/ML (HALDOL) VIAL IM PRN (22:10)
[2020-01-12] MEDS: ADVAIR HFA 115/21 MCG INHALER 8 GM IH SCH (22:15)
[2020-01-13 00:03] VITALS: BP 103/65
[2020-01-13] MEDS: RT-ALBUTEROL INHALER HFA (VENTOLIN HFA) 18 GM IH SCH ×6 (02:00→21:39)
[2020-01-13] MEDS: HALOPERIDOL 5 MG/ML (HALDOL) VIAL IM PRN ×4 (02:15→23:50)
[2020-01-13 03:22] VITALS: BP 104/58
[2020-01-13] MEDS: LORazepam 1 MG (ATIVAN) TAB PO PRN ×2 (03:22→16:13)
[2020-01-13 07:33] VITALS: BP 112/72
[2020-01-13] MEDS: ADVAIR HFA 115/21 MCG INHALER 8 GM IH SCH ×2 (07:46→18:09)
[2020-01-13] MEDS: PANTOPRAZOLE 20 MG TABLET (PROTONIX) PO SCH ×2 (08:18→20:24)
[2020-01-13] MEDS: predniSONE 20 MG TAB PO SCH (08:18)
[2020-01-13] MEDS: KCL 20 MEQ TAB (K-DUR) PO SCH (08:18)
[2020-01-13] MEDS: OXcarbazepine (TRILEPTAL) 300 MG TAB PO SCH ×2 (08:18→20:24)
[2020-01-13] MEDS: HYDROCORTISONE 20 MG (CORTEF) TAB PO SCH ×2 (08:18→20:24)
[2020-01-13] MEDS: GABAPENTIN 300 MG (NEURONTIN) CAP PO SCH ×3 (08:18→20:24)
[2020-01-13] MEDS: LORATADINE (CLARITIN) 10 MG TAB PO SCH (08:18)
[2020-01-13] MEDS: APIXABAN 5 MG (ELIQUIS) TABLET PO SCH ×2 (08:18→20:25)
[2020-01-13] MEDS: AMITRIPTYLINE 50 MG (ELAVIL) TAB PO SCH ×2 (08:18→20:25)
[2020-01-13] MEDS: meTOprolol TARTRATE 50 MG (LOPRESSOR) TAB PO SCH ×2 (08:18→20:25)
[2020-01-13] MEDS: ALLOPURINOL 300 MG (ZYLOPRIM) TAB PO SCH (08:18)
[2020-01-13] MEDS: FLUTICASONE NASAL SPRAY (FLONASE) 16 GM BTL NS SCH ×2 (08:19→20:24)
[2020-01-13] MEDS: NAPHA/PHEN (NAPHCON-A, OPCON-A) OP SOLN 15 ML BTL OU SCH ×2 (08:20→20:24)
--- NOTE | 2020-01-13 09:54 | Physical Therapy Daily Note ---
PT Daily Note-Current Subjective Pt supine in bed upon arrival to room, agreeable to therapy, but then denies any OOb activity. Pt agreeable to complete bed exercises. Appearance Following bed exercise, pt supine with call light and tray within reach, all needs met Mental Status Patient Orientation: Person Attachments: IV Transfers SCALE: Activities may be completed with or without assistive devices. 9-Akvnxlkoyb-lxyjean completes the activity by him/herself with no assistance from a helper. 5-Set-up or Clean-up Assistance-helper sets up or cleans up; patient completes activity. [place] assists only prior to or following the activity. 4-Supervision or Touching Assistance-helper provides verbal cues and/or touching/steadying and/or contact guard assistance as patient completes activity. Assistance may be provided throughout the activity or intermittently. 3-Partial/Moderate Assistance-helper does LESS THAN HALF the effort. [place] lifts, holds or supports trunk or limbs, but provides less than half the effort. 2-Substantial/Maximal Assistance-helper does MORE THAN HALF the effort. [place] lifts or holds trunk or limbs and provides more than half the effort. 3-Dxpksdbgu-rckmms does ALL the effort. Patient does none of the effort to com plete the activity. Or, the assistance of 2 or more helpers is required for the patient to complete the activity. If activity was not attempted, code reason: 7-Patient Refused. 9-Not Applicable-not attempted and the patient did not perform the activity before the current illness, exacerbation or injury. 10-Not Attempted due to Environmental Limitations-(lack of equipment, weather restraints, etc.). 88-Not Attempted due to Medical Conditions or Safety Concerns. Exercises Supine Ex: Ankle pumps, Quad Set, Short Arc Quads, Resisted flex/ext, Bicep Curls Supine Reps: 10 Assessment Current Status: Fair Progress Pt refused any OOB activity, and only wanted to complete UE exercises, but reluctantly agreed to LE exercises. Will continue to encourage OOB activity and progress pt as tolerated PT Custodial Goals Strawhat Blocking Operator Goals PT Strawhat Blocking Operator Goals Time Frame: Jan 19, 2020 Roll Left & Right (QC): 3 Sit to Lying (QC): 3 Lying-Sitting on Side/Bed(QC): 3 Sit to Stand (QC): 3 Chair/Bar-qe-Bclyh Xfer(QC): 3 PT Plan Problem List Problem List: Activity Tolerance, Functional Strength, Safety, Balance, Gait, Transfer, Bed Mobility, ROM Treatment/Plan Treatment Plan: Continue Plan of Care Treatment Plan: Bed Mobility, Education, Functional Activity Lissett, Functional Strength, Gait, Safety, Therapeutic Exercise, Transfers Treatment Duration: Jan 19, 2020 Frequency: 6 times per week Estimated Hrs Per Day: .25 hour per day Patient and/or Family Agrees t: Yes Time/GCodes Time In: 922 Time Out: 932 Total Billed Treatment Time: 10 Total Billed Treatment 1 visit FA (10') MARCELINA DOMINGUEZ PT Jan 13, 2020 09:54
[2020-01-13 11:18] VITALS: BP 110/71
--- NOTE | 2020-01-13 12:31 | Progress Note - Hospitalist ---
Subjective HPI/CC On Admission Date Seen by Provider: Jan 13, 2020 Time Seen by Provider: 12:23 Pt is a 69yoCM with a PMH of COPD, HTN, atrial fibrillation who presented to the ER due to cough and SOB for the past 24 hours. He was brought in by EMS due to oxygen sats of 82%. He was confused as well which is unlike him. He reported had an axillary temp of over 100 as well. He is from a [place] with one known positive COVID case. He states that he is feeling much better today and breathing easier. 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 Subjective/Events-last exam Pt is doing well. Only complaint is about requesting more coffee. 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 He states he was just recently at [facility] to work on his psych meds and was discharged back to [facility]. The guardian was not aware he was sent to the ER from the [place]. Focused Exam Lactate Level 01/11/20 21:35: Lactic Acid Level 1.63 Objective Exam Vital Signs Vital Signs Date Time Temp Pulse Resp B/P (MAP) Pulse Ox O2 Delivery O2 Flow Rate FiO2 01/13/20 11:18 36.3 71 18 110/71 (84) 93 Room Air 01/13/20 03:22 2.00 Capillary Refill : Less Than 3 Seconds General Appearance: No Apparent Distress, Chronically ill, Obese Respiratory: Lungs Clear, No Respiratory Distress Cardiovascular: Regular Rate, Rhythm, No Murmur Gastrointestinal: Normal Bowel Sounds, Non Tender, Soft Neurologic/Psychiatric: Alert, Disoriented Results/Procedures Lab Patient resulted labs reviewed. Assessment/Plan Assessment and Plan Assess & Plan/Chief Complaint Acute Hypoxic Respiratory Failure COPD Exacerbation Continue steroids MAT protocol Advair COVID negative On room air a-fib with RVR RVR resolved Continue Lopressor and Cardizem Continue Eliquis HTN neuropathy HLD Gout no acute management needs, continue home meds Dispo: Apparently was at [facility] a few weeks ago and was discharged there with hospice. Unsure of what agency and if he was actually enrolled. I attempted to call [facility] hospice and am awaiting a return call. Diagnosis/Problems Diagnosis/Problems (1) Atrial fibrillation with RVR Status: Acute (2) Acute respiratory failure Qualifiers: Respiratory failure complication: hypoxia Qualified Codes: J96.01 - Acute respiratory failure with hypoxia (3) Dementia Status: Chronic Qualifiers: Dementia type: unspecified type Dementia behavioral disturbance: with behavioral disturbance Qualified Codes: F03.91 - Unspecified dementia with behavioral disturbance Clinical Quality Measures DVT/VTE Risk/Contraindication: Risk Factor Score Per Nursin RFS Level Per Nursing on Admit: 4+=Very High NARA KEE MD Jan 13, 2020 12:31
[2020-01-13 15:52] VITALS: BP 116/78
[2020-01-13 19:24] VITALS: BP 113/74
[2020-01-13] MEDS: SENNA W/DOCUSATE (SENOKOT S) TABLET PO SCH (20:25)
[2020-01-13] MEDS: QUEtiapine 100 MG (SEROquel) TAB IMMEDIATE RELEASE PO SCH (20:25)
[2020-01-14] VITALS: BP 115/69
--- NOTE | 2020-01-14 01:22 | NUR ---
PT CONSTANTLY TAKING OFF TELE AND GOWN. PUTTING BACK ON MAKES PT MORE AGITATED, WILL LEAVE OFF FOR NOW.
[2020-01-14] MEDS: RT-ALBUTEROL INHALER HFA (VENTOLIN HFA) 18 GM IH SCH ×6 (02:07→23:05)
[2020-01-14 04:00] VITALS: BP 131/86
[2020-01-14] MEDS: HALOPERIDOL 5 MG/ML (HALDOL) VIAL IM PRN ×2 (04:42→17:31)
[2020-01-14] MEDS: ADVAIR HFA 115/21 MCG INHALER 8 GM IH SCH ×2 (06:33→18:48)
[2020-01-14 08:16] VITALS: BP 121/71
[2020-01-14] MEDS: AMITRIPTYLINE 50 MG (ELAVIL) TAB PO SCH ×2 (09:55→21:24)
[2020-01-14] MEDS: LORazepam 1 MG (ATIVAN) TAB PO PRN ×2 (09:55→21:24)
[2020-01-14] MEDS: HYDROCORTISONE 20 MG (CORTEF) TAB PO SCH ×2 (09:55→21:24)
[2020-01-14] MEDS: ALLOPURINOL 300 MG (ZYLOPRIM) TAB PO SCH (09:56)
[2020-01-14] MEDS: OXcarbazepine (TRILEPTAL) 300 MG TAB PO SCH ×2 (09:56→21:24)
[2020-01-14] MEDS: PANTOPRAZOLE 20 MG TABLET (PROTONIX) PO SCH ×2 (09:56→21:24)
[2020-01-14] MEDS: GABAPENTIN 300 MG (NEURONTIN) CAP PO SCH ×3 (09:56→21:24)
[2020-01-14] MEDS: meTOprolol TARTRATE 50 MG (LOPRESSOR) TAB PO SCH ×2 (09:56→21:24)
[2020-01-14] MEDS: predniSONE 20 MG TAB PO SCH (09:56)
[2020-01-14] MEDS: KCL 20 MEQ TAB (K-DUR) PO SCH (09:56)
[2020-01-14] MEDS: APIXABAN 5 MG (ELIQUIS) TABLET PO SCH ×2 (09:56→21:25)
[2020-01-14] MEDS: LORATADINE (CLARITIN) 10 MG TAB PO SCH (09:56)
[2020-01-14] MEDS: FLUTICASONE NASAL SPRAY (FLONASE) 16 GM BTL NS SCH ×2 (09:57→21:24)
[2020-01-14] MEDS: NAPHA/PHEN (NAPHCON-A, OPCON-A) OP SOLN 15 ML BTL OU SCH ×2 (09:57→21:24)
--- NOTE | 2020-01-14 11:06 | Progress Note - Hospitalist ---
Subjective HPI/CC On Admission Date Seen by Provider: Jan 14, 2020 Time Seen by Provider: 11:00 Pt is a 69yoCM with a PMH of COPD, HTN, atrial fibrillation who presented to the ER due to cough and SOB for the past 24 hours. He was brought in by EMS due to oxygen sats of 82%. He was confused as well which is unlike him. He reported had an axillary temp of over 100 as well. [place] known positive [place] case. He states that he is feeling much better today and breathing easier. 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 Subjective/Events-last exam Pt remains confused today but very alert. Has been hollering out throughout most of the day. When I entered his room his leg was hanging off the bed but otherwis e had not complaints or concerns. Focused Exam Lactate Level 01/11/20 21:35: Lactic Acid Level 1.63 Objective Exam Vital Signs Vital Signs Date Time Temp Pulse Resp B/P (MAP) Pulse Ox O2 Delivery O2 Flow Rate FiO2 01/14/20 09:30 94 Room Air 01/14/20 08:16 36.9 72 20 121/71 (88) 01/13/20 03:22 2.00 Capillary Refill : Less Than 3 Seconds General Appearance: No Apparent Distress, Chronically ill Respiratory: Lungs Clear, No Respiratory Distress Cardiovascular: Regular Rate, Rhythm, No Murmur Neurologic/Psychiatric: Alert, Disoriented Results/Procedures Lab Patient resulted labs reviewed. Assessment/Plan Assessment and Plan Assess & Plan/Chief Complaint Acute Hypoxic Respiratory Failure COPD Exacerbation Continue steroids MAT protocol Advair COVID negative On room air a-fib with RVR RVR resolved Continue Lopressor and Cardizem Continue Eliquis HTN neuropathy HLD Gout no acute management needs, continue home meds Dispo: Apparently was at [facility] a few weeks ago and was discharged there with hospice. Spoke with multiple hospices and [place]. He returned to [place] to be "palliatively skilled." Not sure if he will qualify for hospice but would benefit from palliative bridge program if guardian agreeable. Diagnosis/Problems Diagnosis/Problems (1) Atrial fibrillation with RVR Status: Acute (2) Acute respiratory failure Qualifiers: Respiratory failure complication: hypoxia Qualified Codes: J96.01 - Acute respiratory failure with hypoxia (3) Dementia Status: Chronic Qualifiers: Dementia type: unspecified type Dementia behavioral disturbance: with behavioral disturbance Qualified Codes: F03.91 - Unspecified dementia with behavioral disturbance Clinical Quality Measures DVT/VTE Risk/Contraindication: Risk Factor Score Per Nursin RFS Level Per Nursing on Admit: 4+=Very High NARA KEE MD Jan 14, 2020 11:06
[2020-01-14 11:27] VITALS: BP 124/72
--- NOTE | 2020-01-14 14:59 | NUR ---
PATIENT WILL NOT LEAVE TELEMETRY ON, ORDER OBTAINED TO DC TELEMETRY
[2020-01-14 15:42] VITALS: BP 109/62
--- NOTE | 2020-01-14 17:31 | NUR ---
patient yelling constantly, wanting to go home, trying to get up, bedrails up, bed alarm on
[2020-01-14 20:24] VITALS: BP 138/86
[2020-01-14] MEDS: QUEtiapine 100 MG (SEROquel) TAB IMMEDIATE RELEASE PO SCH (21:24)
[2020-01-14] MEDS: SENNA W/DOCUSATE (SENOKOT S) TABLET PO SCH (21:25)
[2020-01-15 00:20] VITALS: BP 113/65
[2020-01-15] MEDS: RT-ALBUTEROL INHALER HFA (VENTOLIN HFA) 18 GM IH SCH ×3 (02:24→10:18)
[2020-01-15 04:41] VITALS: BP 105/55
[2020-01-15] MEDS: predniSONE 20 MG TAB PO SCH (06:23)
[2020-01-15] MEDS: ADVAIR HFA 115/21 MCG INHALER 8 GM IH SCH (06:45)
[2020-01-15 08:00] VITALS: BP 102/58
[2020-01-15] MEDS: meTOprolol TARTRATE 50 MG (LOPRESSOR) TAB PO SCH (08:58)
[2020-01-15] MEDS: ALLOPURINOL 300 MG (ZYLOPRIM) TAB PO SCH (08:58)
[2020-01-15] MEDS: GABAPENTIN 300 MG (NEURONTIN) CAP PO SCH (08:58)
[2020-01-15] MEDS: APIXABAN 5 MG (ELIQUIS) TABLET PO SCH (08:58)
[2020-01-15] MEDS: PANTOPRAZOLE 20 MG TABLET (PROTONIX) PO SCH (08:58)
[2020-01-15] MEDS: AMITRIPTYLINE 50 MG (ELAVIL) TAB PO SCH (08:58)
[2020-01-15] MEDS: LORATADINE (CLARITIN) 10 MG TAB PO SCH (08:58)
[2020-01-15] MEDS: HYDROCORTISONE 20 MG (CORTEF) TAB PO SCH (08:58)
[2020-01-15] MEDS: KCL 20 MEQ TAB (K-DUR) PO SCH (08:58)
[2020-01-15] MEDS: OXcarbazepine (TRILEPTAL) 300 MG TAB PO SCH (08:59)
[2020-01-15] MEDS: NAPHA/PHEN (NAPHCON-A, OPCON-A) OP SOLN 15 ML BTL OU SCH (08:59)
[2020-01-15] MEDS: FLUTICASONE NASAL SPRAY (FLONASE) 16 GM BTL NS SCH (08:59)
--- NOTE | 2020-01-15 09:39 | NUR ---
DISCHARGE PLANNING: It is anticipated that patient will be ready for discharge today back to [facility]. I have spoken to RAY Ro, at [facility]. Patient was a resident with them, she was not Palliative Care. Patient is a [facility] and they will plan to transport him with his w/c if the plan is for discharge. Addendum: 01/15/20 at 1019 by NICCI BURNETT RN This RN spoke with Kp Patterson, patients [facility]. He has no concerns with his discharge back to [facility].
--- NOTE | 2020-01-15 10:26 | Physical Therapy Progress Note ---
Therapy Progress Note Attempted to address gross motor skills with patient, however, patient became highly agitated and adamantly declined therapy. PT unable to educate patient on importance of participating with therapy to improve mobility and strength. Per RN, patient to dismiss back to [place] on this date. 1 visit ([phone]) JANAE BAKER PT Jan 15, 2020 10:26
[2020-01-15] MEDS ORDERED: PRED10TA22 PO (10:53)
--- NOTE | 2020-01-15 11:16 | NUR ---
DISCHARGE PLANNING: Patient will return to his previous placement at [facility] where he is in correction care..neither skilled nor hospice. He will be picked up by the facility ..time to be determined. I have sent unfinalized orders and clinical information. Finalized order will be faxed once nurse has them ready. Facility to give me pick-up time.
--- NOTE | 2020-01-15 12:00 | NUR ---
[facility]chor [facility].
--- NOTE | 2020-01-15 12:13 | Occupational Ther Daily Note ---
OT Current Status-Daily Note Subjective Pt seen in bed ~0800 sleeping. OT attempted to awake, pt does not rise. Pt seen in bed awake at 0930. Pt alert/ oriented to person, place, situation. Pt agrees to OT tx session, though denies OOB activities. Denies pain, states feels the same as Wednesday. States desire to go home. Mental Status/Objective Patient Orientation: Person, Place, Situation ADL-Treatment Therapy Code Descriptions/Definitions Functional Satin Measure: 0=Not Assessed/NA 4=Minimal Assistance 1=Total Assistance 5=Supervision or Setup 2=Maximal Assistance 6=Modified Satin 3=Moderate Assistance 7=Complete IndependenceSCALE: Activities may be completed with or without assistive devices. 3-Ofnypnmdtw-ynvwdsv completes the activity by him/herself with no assistance from a helper. 5-Set-up or Clean-up Assistance-helper sets up or cleans up; patient completes activity. [place] assists only prior to or following the activity. 4-Supervision or Touching Assistance-helper provides verbal cues and/or touching/steadying and/or contact guard assistance as patient completes activity. Assistance may be provided throughout the activity or intermittently. 3-Partial/Moderate Assistance-helper does LESS THAN HALF the effort. [place] lifts, holds or supports trunk or limbs, but provides less than half the effort. 2-Substantial/Maximal Assistance-helper does MORE THAN HALF the effort. [place] lifts or holds trunk or limbs and provides more than half the effort. 7-Qpwxyookv-vmhjim does ALL the effort. Patient does none of the effort to complete the activity. Or, the assistance of 2 or more helpers is required for the patient to complete the activity. If activity was not attempted, code reason: 7-Patient Refused. 9-Not Applicable-not attempted and the patient did not perform the activity before the current illness, exacerbation or injury. 10-Not Attempted due to Environmental Limitations-(lack of equipment, weather restraints, etc.). 88-Not Attempted due to Medical Conditions or Safety Concerns. Eating (QC): 3 (Pt requests orage juice. Pt requires assist to bring to mouth. Pt is asked to complete this task on own. Pt holds, though denies to bring to mouth. ) Oral Hygiene (QC): 3 (Pt denies OOB, agrees to oral care in bed. Pt's HOB elevated to tolerable range, pt denies placing toothpaste on toothbrush, completed for pt. Pt requires min physical cues to reach mouth with toothbrush. Completes, requires s/u for spit cup/ rinsing. ) Other Treatment Pt seen in bed. Pt alert/ agrees to therapy. Pt completes UE theraband ex with increased cues due to decreased vision/ problem solving. Pt completes 10 reps of bicep curls bilaterally. DO enters. Pt declines additional UE theraband ex, pt is left with ex band. Pt agrees to oral care and feeding, completed as outlined above. Pt desires to get shorts on, shorts cannot be found in room. Pt becomes increasingly more vocal- pt educated on OT writing items pt is missing on board for staff to acknowledge. Pt left with PT end of session. Nursing notified of pt's c/o bringing items and not being able to find them. All needs met. Education OT Patient Education: Correct positioning, Exercise program, Home exercise program, Modified ADL techniques, Purpose of tx/functional activities, Safety issues Teaching Recipient: Patient Teaching Methods: Demonstration, Discussion Response to Teaching: Verbalize Understanding, Return Demonstration, Reinforcement Needed OT Fpc Goals Fpc Goals Time Frame: Jan 19, 2020 Eating (QC): 4 Oral Hygiene (QC): 4 Toileting Hygiene (QC): 2 Shower/Bathe Self (QC): 2 Upper Body Dressing (QC): 4 Lower Body Dressing (QC): 2 On/Off Footwear (QC): 6 (mod I with use of AE) Additional Goals: 1-Demonstrate ADL Tasks, 2-Verbalize Understanding, 3- ImproveStrength/Lissett 1=Demonstrate adherence to instructed precautions during ADL tasks. 2=Patient will verbalize/demonstrate understanding of assistive devices/modifications for ADL. 3=Patient will improve strength/tolerance for activity to enable patient to perform ADL's. OT Education/Plan Problem List/Assessment Assessment: Decreased Activ Tolerance, Decreased UE Strength, Dependent Transfers, Impaired Bed Mobility, Impaired Cognition, Impaired Funct Balance, Impaired I ADL's, Impaired Self-Care Skills Discharge Recommendations Plan/Recommendations: Continue POC Therapy Discharge Recommendati: 24 Hour Supervision Treatment Plan/Plan of Care Treatment,Training & Education: Yes Patient would benefit from OT for education, treatment and training to promote independence in ADL's, mobility, safety and/or upper extremity function for ADL's. Plan of Care: ADL Retraining, Functional Mobility, UE Funct Exercise/Act, W/C Management Training Treatment Duration: Jan 19, 2020 Frequency: 5 times per week Estimated Hrs Per Day: .25 hour per day Agreement: Yes Rehab Potential: Guarded Time/GCodes Start Time: 09:30 Stop Time: 09:47 Total Time Billed (hr/min): 17 Billed Treatment Time 1, ADL (17) SEEMA GOYAL OTR Jan 15, 2020 12:13
--- NOTE | 2020-01-16 16:13 | Discharge Summary ---
Discharge Summary Hospital Course Was the Problem List Reviewed?: Yes Problems/Dx: (1) COPD with exacerbation Status: Acute (2) Atrial fibrillation with RVR Status: Acute (3) Acute respiratory failure Qualifiers: Qualified Codes: J96.01 - Acute respiratory failure with hypoxia (4) Dementia Status: Chronic Qualifiers: Qualified Codes: F03.91 - Unspecified dementia with behavioral disturbance Hospital Course Date of Admission: Jan 11, 2020 at 22:25 Admission Diagnosis : acute respiratory failure with hypoxia due to COPD exacerbation Family Physician/Provider: Sampson Hudson MD Date of Discharge: 01/16/20 Discharge Diagnosis: acute respiratory failure with hypoxia due to COPD exacerbation Hospital Course: Juancarlos Lewis is a 69-year-old male with past medical history of dementia who presented with hypoxia and was admitted with COPD exacerbation. He was initially requiring supplemental oxygen but this was able to be titrated down and removed. He was treated with inhalers and steroids and improved quickly. His course was complicated by atrial fibrillation with rapid ventricular response which spontaneously resolved. He was continued on his previous medications for atrial fibrillation. He was discharged back to [facility] in stable condition. He should follow-up with his physician during the next intermediate rounds. Labs and Pending Lab Test: Microbiology 01/11/20 Blood Culture - Preliminary, Resulted No growth Home Meds Active Prednisone 10 Mg Tab.ds.pk 10 Mg PO DAILY Take 6 tabs(60mg)daily,decrease by 1 tab(10MG)daily. Reported Vitamin B-12 (Cyanocobalamin (Vitamin B-12)) 500 Mcg Tablet 500 Mcg PO DAILY Senna Plus Tablet (Sennosides/Docusate Sodium) 1 Each Tablet 2 Ea PO HS Quetiapine Fumarate 100 Mg Tablet 100 Mg PO HS Potassium Chloride 20 Meq Tab.er.prt 20 Meq PO DAILY Polyethylene Glycol 3350 17 Gm Powd.pack 17 Gm PO DAILY PRN Oxcarbazepine 300 Mg Tablet 300 Mg PO BID Omeprazole 20 Mg Capsule.dr 20 Mg PO BID Olopatadine HCl 2.5 Ml Drops 1 Drop OU DAILY Metoprolol Tartrate 50 Mg Tablet 50 Mg PO BID Methocarbamol 500 Mg Tablet 500 Mg PO QID Metformin HCl 500 Mg Tablet 500 Mg PO BID Magnesium (Magnesium Oxide) 400 Mg Tablet 400 Mg PO BID Ativan (Lorazepam) 1 Mg Tablet 1 Mg PO Q6H PRN Furosemide 20 Mg Tablet 20 Mg PO DAILY Lactulose 10 Gm/15 Ml Solution 30 Ml PO Q12H PRN Hydrocortisone 20 Mg Tablet 20 Mg PO DAILY Hydrocortisone 10 Mg Tablet 10 Mg PO HS Adult Glycerin (Glycerin) 1 Each Supp.rect 1 Each RC DAILY PRN Neurontin (Gabapentin) 300 Mg Capsule 300 Mg PO TID Fluticasone Propionate 16 Gm [place].susp 1 [place] NSEACH BID Eliquis (Apixaban) 5 Mg Tablet 5 Mg PO BID Docusate Sodium 100 Mg Tablet 100 Mg PO BID Diltiazem 24Hr ER (Diltiazem HCl) 240 Mg Cap.er.24h 240 Mg PO HS Diclofenac Sodium 100 Gm Gel..gram. 1 Applic TD BID Loratadine 10 Mg Tablet 10 Mg PO DAILY Atorvastatin Calcium 10 Mg Tablet 10 Mg PO DAILY Anusol-Hc (Hydrocortisone Acetate) 25 Mg Supp.rect 25 Mg RC DAILY 10 Days USE FOR 10 DAYS- END DATE 01-16-2020 Amitriptyline HCl 50 Mg Tablet 50 Mg PO BID Allopurinol 300 Mg Tablet 300 Mg PO DAILY Tylenol Extra Strength (Acetaminophen) 500 Mg Tablet 1,000 Mg PO TID PRN Assessment/Pt Instructions patient transfer back to [facility]. He should follow-up with his physician during the next intermediate rounds. He should complete his taper of steroids. Discharge Planning: <30 minutes discharge planning Discharge Instructions Discharge Diet: No Restrictions Activity as Tolerated: Yes Discharge Physical Examination Vital Signs Vital Signs Date Time Temp Pulse Resp B/P (MAP) Pulse Ox O2 Delivery O2 Flow Rate FiO2 01/15/20 13:48 01/15/20 10:18 95 Room Air 01/15/20 08:00 36.5 78 20 01/13/20 03:22 2.00 General Appearance: No Apparent Distress, Chronically ill, Obese Respiratory: No Respiratory Distress, Wheezing Cardiovascular: Regular Rate, Rhythm, No Murmur Gastrointestinal: Normal Bowel Sounds, Non Tender, Soft Extremity: Normal Inspection, Non Tender, Pedal Edema Skin: Normal Color, Warm/Dry Neurologic/Psychiatric: Alert, Disoriented Allergies: Coded Allergies: Penicillins (Verified Allergy, Unknown, 09/22/19) morphine (Verified Allergy, Unknown, 09/22/19) tramadol (Verified Allergy, Unknown, 09/22/19) Discharge Summary Date of Admission Jan 11, 2020 at 22:25 Date of Discharge Jan 15, 2020 at 13:30 Discharge Date: Jan 15, 2020 Discharge Time: 13:30 Admission Diagnosis Acute Hypoxic Respiratory Failure COPD Exacerbation Discharge Diagnosis (1) Atrial fibrillation with RVR Status: Acute (2) Acute respiratory failure Qualifiers: Qualified Codes: J96.01 - Acute respiratory failure with hypoxia (3) Dementia Status: Chronic Qualifiers: Qualified Codes: F03.91 - Unspecified dementia with behavioral disturbance Clinical Quality Measures DVT/VTE Risk/Contraindication: Risk Factor Score Per Nursin RFS Level Per Nursing on Admit: 4+=Very High KEANU WHITLEY MD Jan 16, 2020 16:13
== END 2020-01-15 13:30 | DRG 189 ==
LOC: EDUNIT# 21:16 → ER FS 21:17 → 4TH 22:25 → ER FS 23:49
PROVIDERS: ADMIT Internal Medicine; ATTEND Internal Medicine
DX: J96.01 Acute respiratory failure with hypoxia (principal); J44.1 Chronic obstructive pulmonary disease with (acute) exacerbation; I48.91 Unspecified atrial fibrillation; R53.81 Other malaise; I10 Essential (primary) hypertension; E78.00 Pure hypercholesterolemia, unspecified; F41.9 Anxiety disorder, unspecified; F31.9 Bipolar disorder, unspecified; Z20.828 Contact with and (suspected) exposure to other viral communicable diseases; F03.90 Unspecified dementia, unspecified severity, without behavioral disturbance, psychotic disturbance, mood disturbance, and anxiety; E11.40 Type 2 diabetes mellitus with diabetic neuropathy, unspecified; E78.5 Hyperlipidemia, unspecified; M10.9 Gout, unspecified
CPT/HCPCS: 36415; 71045; 80053; 82962; 83605; 83880; 84145; 84484; 85007; 85025; 85027; 86141; 87040; 87635; 93005; 94640; 94664; 94668; 94760; 96361; 96365; 96375

== ENCOUNTER 2020-02-08 09:00 | Emergency (ER) | payer MEDICARE, MEDICAID ==
[~2020-02-08] VITALS: Ht 185.4 cm; Wt 100.0 kg
[~2020-02-08 09:00] MED LIST: ACET-2267 PO; ALLO300T2 PO; AMIT50TA3 PO; APIX5TAB PO; ATOR10TA66 PO; CYAN500T62 PO; DICL100G31 TD; DILT240C91 PO; DOCU100T2 PO; FLUT16SP22 NSEACH; FURO20TA4 PO; GABA300C PO; GLYC1SUP RC; HYDR-4164 PO; HYDR20TA2 PO; HYDR25SU28 RC; LACT10SO PO; LORA-405 PO; LORA10TA7 PO; MAGN400T39 PO; METF-397 PO; METH500T7 PO; METO50TA15 PO; OLOP2.5D6 OU; OMEP20CA18 PO; OXCA300T18 PO; POLY17PO31 PO; POTA20TA15 PO; PRED10TA22 PO; QUET100T33 PO; SENN1TAB67 PO
[2020-02-08] MEDS ORDERED: RT-ALBUTEROL/IPRATROPIUM 3 ML (DUONEB) VIAL ONE (09:03)
[2020-02-08] MEDS ORDERED: methylPREDNISolone 125 MG (Solu-MEDROL) VIAL ONE (09:03)
--- NOTE | 2020-02-08 09:14 | ED Dyspnea ---
General Stated Complaint: RESPIRATORY DISTRESS Source of Information: EMS Exam Limitations: Other History of Present Illness Date Seen by Provider: Feb 08, 2020 Time Seen by Provider: 09:00 Initial Comments 69-year-old male presents via EMS from the [facility] where he is on hospice (specific dx unknown to us) with increased shortness of air and oxygen sa turations in the 70 percent range, presumed on oxygen, although not confirmed. On EMS arrival patient's oxygen sats were 98 percent with labored breathing, no respiratory distress and patient consciousness. Patient is a full code and has a state assigned POA. Allergies and Home Medications Allergies Coded Allergies: Penicillins (Verified Allergy, Unknown, 09/22/19) morphine (Verified Allergy, Unknown, 09/22/19) tramadol (Verified Allergy, Unknown, 09/22/19) Home Medications Acetaminophen 500 Mg Tablet, 1,000 MG PO TID PRN for PAIN-MILD (1-4), (Reported) Allopurinol 300 Mg Tablet, 300 MG PO DAILY, (Reported) Amitriptyline HCl 50 Mg Tablet, 50 MG PO BID, (Reported) Apixaban 5 Mg Tablet, 5 MG PO BID, (Reported) Atorvastatin Calcium 10 Mg Tablet, 10 MG PO DAILY, (Reported) Cyanocobalamin (Vitamin B-12) 500 Mcg Tablet, 500 MCG PO DAILY, (Reported) Diclofenac Sodium 100 Gm Gel..gram., 1 APPLIC TD BID, (Reported) Diltiazem HCl 240 Mg Cap.er.24h, 240 MG PO HS, (Reported) Docusate Sodium 100 Mg Tablet, 100 MG PO BID, (Reported) Fluticasone Propionate 16 Gm [place].susp, 1 SPRAY NSEACH BID, (Reported) Furosemide 20 Mg Tablet, 20 MG PO DAILY, (Reported) Gabapentin 300 Mg Capsule, 300 MG PO TID, (Reported) Glycerin 1 Each Supp.rect, 1 EACH RC DAILY PRN for CONSTIPATION-8TH LINE, (Reported) Hydrocortisone 10 Mg Tablet, 10 MG PO HS, (Reported) Hydrocortisone 20 Mg Tablet, 20 MG PO DAILY, (Reported) Hydrocortisone Acetate 25 Mg Supp.rect, 25 MG RC DAILY, (Reported) USE FOR 10 DAYS- END DATE 01-16-2020 Lactulose 10 Gm/15 Ml Solution, 30 ML PO Q12H PRN for CONSTIPATION-3RD LINE, (Reported) Loratadine 10 Mg Tablet, 10 MG PO DAILY, (Reported) Lorazepam 1 Mg Tablet, 1 MG PO Q6H PRN for ANXIETY, (Reported) Magnesium Oxide 400 Mg Tablet, 400 MG PO BID, (Reported) Metformin HCl 500 Mg Tablet, 500 MG PO BID, (Reported) Methocarbamol 500 Mg Tablet, 500 MG PO QID, (Reported) Metoprolol Tartrate 50 Mg Tablet, 50 MG PO BID, (Reported) Olopatadine HCl 2.5 Ml Drops, 1 DROP OU DAILY, (Reported) Omeprazole 20 Mg Capsule.dr, 20 MG PO BID, (Reported) Oxcarbazepine 300 Mg Tablet, 300 MG PO BID, (Reported) Polyethylene Glycol 3350 17 Gm Powd.pack, 17 GM PO DAILY PRN for CONSTIPATION- 2ND LINE, (Reported) Potassium Chloride 20 Meq Tab.er.prt, 20 MEQ PO DAILY, (Reported) Prednisone 10 Mg Tab.ds.pk, 10 MG PO DAILY Take 6 tabs(60mg)daily,decrease by 1 tab(10MG)daily. Prescribed by: KEANU WHITLEY on 01/15/20 1053 Prednisone 50 Mg Tab, 50 MG PO DAILY Prescribed by: PANCHO MILLER on 02/08/20 1147 Quetiapine Fumarate 100 Mg Tablet, 100 MG PO HS, (Reported) Sennosides/Docusate Sodium 1 Each Tablet, 2 EA PO HS, (Reported) Patient Home Medication List Home Medication List Reviewed: Yes Review of Systems Review of Systems Constitutional: see HPI, other (unable to get ROS due to pt baseline diminished MS) Past Lxeopyl-Uriffi-Nqcszk Hx Past Med/Social Hx: Reviewed Nursing Past Med/Soc Hx Patient Social History 2nd Hand Smoke Exposure: No Recent Hopitalizations: No Past Medical History Surgeries: No Respiratory: No Cardiac: Yes Atrial Fibrillation, High Cholesterol, Hypertension Neurological: No Genitourinary: No Gastrointestinal: No Musculoskeletal: No Endocrine: Yes Diabetes, Non-Insulin dep HEENT: No Cancer: No Psychosocial: Yes Anxiety, Bipolar, Depression Integumentary: No Blood Disorders: No Family Medical History No Pertinent Family Hx Physical Exam Vital Signs Vital Signs - First Documented 02/08/20 09:00 Temp 36.2 Pulse 143 Resp 15 B/P (MAP) 113/77 (89) Pulse Ox 100 O2 Delivery Non Rebreather O2 Flow Rate 8.00 Capillary Refill : Height, Weight, BMI Height: '" Weight: lbs. oz. kg; 31.54 BMI Method: General Appearance: No Apparent Distress, Chronically ill, Other (intermittent burst of yelling. Unable to speak or answer questions or follow commands) HEENT: PERRL/EOMI, Normal ENT Inspection Neck: Normal Inspection, Supple; No JVD Respiratory: Lungs Clear, Accessory Muscle Use (was using abdominal ms for breathing on arrival), Decreased Breath Sounds; No Respiratory Distress, No Rhonci, No Stridor, No Wheezing Cardiovascular: Regular Rate, Rhythm, No Edema, No JVD Gastrointestinal: Non Tender, Soft Extremity: Normal Capillary Refill, Normal Inspection, No Pedal Edema Neurologic/Psychiatric: Alert (eyes open spontaneously), Other (baseline decreased MS) Skin: Normal Color, Warm/Dry Focused Exam Lactate Level 02/08/20 09:07: Lactic Acid Level 1.49 Lactic Acid Level Laboratory Tests Test 02/08/20 09:07 Lactic Acid Level 1.49 MMOL/L (0.50-2.00) Progress/Results/Core Measures Results/Orders Lab Results Laboratory Tests Test 02/08/20 09:07 Range/Units White Blood Count 11.0 4.3-11.0 10^3/uL Red Blood Count 3.98 L 4.35-5.85 10^6/uL Hemoglobin 10.7 L 13.3-17.7 G/DL Hematocrit 35 L 40-54 % Mean Corpuscular Volume 87 80-99 FL Mean Corpuscular Hemoglobin 27 25-34 PG Mean Corpuscular Hemoglobin Concent 31 L 32-36 G/DL Red Cell Distribution Width 15.0 H 10.0-14.5 % Platelet Count 299 130-400 10^3/uL Mean Platelet Volume 9.5 7.4-10.4 FL Immature Granulocyte % (Auto) 0 % Neutrophils (%) (Auto) 56 42-75 % Lymphocytes (%) (Auto) 27 12-44 % Monocytes (%) (Auto) 14 H 0-12 % Eosinophils (%) (Auto) 3 0-10 % Basophils (%) (Auto) 0 0-10 % Neutrophils # (Auto) 6.2 1.8-7.8 X 10^3 Lymphocytes # (Auto) 3.0 1.0-4.0 X 10^3 Monocytes # (Auto) 1.5 H 0.0-1.0 X 10^3 Eosinophils # (Auto) 0.3 0.0-0.3 10^3/uL Basophils # (Auto) 0.0 0.0-0.1 10^3/uL Immature Granulocyte # (Auto) 0.0 0.0-0.1 10^3/uL Sodium Level 140 135-145 MMOL/L Potassium Level 4.2 3.6-5.0 MMOL/L Chloride Level 101 98-107 MMOL/L Carbon Dioxide Level 27 21-32 MMOL/L Anion Gap 12 5-14 MMOL/L Blood Urea Nitrogen 22 H 7-18 MG/DL Creatinine 0.57 L 0.60-1.30 MG/DL Estimat Glomerular Filtration Rate > 60 BUN/Creatinine Ratio 39 Glucose Level 115 H 70-105 MG/DL Lactic Acid Level 1.49 0.50-2.00 MMOL/L Calcium Level 8.5 8.5-10.1 MG/DL Corrected Calcium 9.1 8.5-10.1 MG/DL Total Bilirubin 0.3 0.1-1.0 MG/DL Aspartate Amino Transf (AST/SGOT) 11 5-34 U/L Alanine Aminotransferase (ALT/SGPT) 6 0-55 U/L Alkaline Phosphatase 96 40-136 U/L Troponin I < 0.30 <0.30 NG/ML Total Protein 6.2 L 6.4-8.2 GM/DL Albumin 3.3 3.2-4.5 GM/DL My Orders Orders - ROVENSTINE,PANCHO L DO Ed Iv/Invasive Line Start (02/08/20 09:06) Cbc With Automated Diff (02/08/20 09:06) Comprehensive Metabolic Panel (02/08/20 09:06) Lactic Acid Analyzer (02/08/20 09:06) Troponin I Fs (02/08/20 09:06) Chest 1 View Ap/Pa Only (02/08/20 09:06) Methylprednisolone Sod Succ (Solu-Medrol (02/08/20 09:03) Albuterol/Ipra Inhalation Soln (Duoneb I (02/08/20 09:03) Albuterol/Ipra Inhalation Soln (Duoneb I (02/08/20 09:15) Methylprednisolone Sod Succ (Solu-Medrol (02/08/20 09:15) Ns Iv 500 Ml (Sodium Chloride 0.9%) (02/08/20 09:15) Svn Small Volume Nebulizer (02/08/20 09:14) Diltiazem Injection (Cardizem Injection) (02/08/20 09:30) Lorazepam Injection (Ativan Injection) (02/08/20 09:30) Lorazepam Injection (Ativan Injection) (02/08/20 09:24) Metoprolol Tartrate (Ir) Tab (Lopressor (02/08/20 10:00) Lorazepam Injection (Ativan Injection) (02/08/20 10:15) Medications Given in ED Current Medications Medications Dose Ordered Sig/Trini Route Start Time Stop Time Status Last Admin Dose Admin Albuterol/ Ipratropium 3 ml ONCE ONCE INH 02/08/20 09:15 02/08/20 09:16 DC 02/08/20 09:16 3 ML Diltiazem HCl 10 mg ONCE ONCE IVP 02/08/20 09:30 02/08/20 09:31 DC 02/08/20 09:28 10 MG Lorazepam 1 mg ONCE ONCE IVP 02/08/20 09:30 02/08/20 09:31 DC 02/08/20 09:29 1 MG Lorazepam 1 mg ONCE ONCE IVP 02/08/20 10:15 02/08/20 10:16 DC 02/08/20 10:15 1 MG Methylprednisolone Sodium Succinate 125 mg ONCE ONCE IVP 02/08/20 09:15 02/08/20 09:16 DC 02/08/20 09:17 125 MG Metoprolol Tartrate 50 mg ONCE ONCE PO 02/08/20 10:00 02/08/20 10:01 DC 02/08/20 10:21 50 MG Vital Signs/I&O 02/08/20 02/08/20 09:00 12:59 Temp 36.2 Pulse 143 93 Resp 15 22 B/P (MAP) 113/77 (89) 106/58 Pulse Ox 100 93 O2 Delivery Non Rebreather O2 Flow Rate 8.00 Progress Progress Note : Progress Note Patient is currently under hospice care with the DO NOT RESUSCITATE status as "full code". Current legal motion to get patient as a DO NOT RESUSCITATE status, however this is still pending. Patient did not meet admission criteria as his symptoms improved with steroids and a breathing treatment as well as other medications to slow his heart rate. Patient intermittently agitated with erratic breathing and refusal to keep oxygen on, however he maintained his oxygen saturations in the upper 80s to 90s and in no further respiratory distress. Spoke to patient's power of defense attorney, Kp Patterson, defense attorney who was assigned him by the critical access hospital. He explained patient is in the process of an application for DO NOT RESUSCITATE status, but still has to go through the proper channels and the Court in [facility], but would likely transition in the next day or 2. Spoke to Suzanne with hospice care and she is okay with patient returning and they will assist [facility]dc with symptomatic care. Spoke to Jia, supervisor public health nursing at [facility] who understands patient status as well, will return to care at the [facility] with hospice assistance. Prescription written for prednisone 50 mg tablets to take daily for one week, advised fdc her PCP to reevaluate patient in 1 week, sooner if questions or concerns Diagnostic Imaging Comments FINDINGS: There is limited lung volumes with poor inspiratory expansion; this results in some mild atelectatic changes in the left lung base. No alveolar infiltrate. No overt failure pattern, effusion or pneumothorax. IMPRESSION: Some crowding of the basilar lung markings and partial atelectasis with suboptimal inspiratory expansion, otherwise negative. Dictated on workstation # [id number] Dict: 02/08/20914 Trans: 02/08/20917 [facility] [id number] Interpreted by: ANDREW RUDD Electronically signed by: Departure Impression Primary Impression: COPD with exacerbation Additional Impression: SVT (supraventricular tachycardia) Disposition: 01 HOME, SELF-CARE (fdc) Condition: Improved Departure-Patient Inst. Decision time for Depature: 11:46 Referrals: RONAL VYAS MD (PCP/Family) Primary Care Physician Patient Instructions: Exacerbation of COPD Add. Discharge Instructions: Follow up with Dr Vyas in 1 week. Consult w Hospice Nursing regarding further intervention Consult w legal guardian, Kp Patterson regarding "DNR" status Scripts Prednisone (Prednisone) 50 Mg Tab 50 MG PO DAILY, #7 TAB Prov: PANCHO MILLER DO 02/08/20 PANCHO MILLER DO Feb 08, 2020 09:13
[2020-02-08] MEDS ORDERED: RT-ALBUTEROL/IPRATROPIUM 3 ML (DUONEB) VIAL INH ONE (09:15)
[2020-02-08] MEDS ORDERED: methylPREDNISolone 125 MG (Solu-MEDROL) VIAL IVP ONE (09:15)
[2020-02-08] MEDS ORDERED: NS IV 500 ML 500 ML IV SCH (09:15)
[2020-02-08 09:16] LABS: HEMATOCRIT 35 % (40-54); HEMOGLOBIN 10.7 G/DL (13.3-17.7); MEAN CORPUSCULAR HEMOGLOBIN 27 PG (25-34); MEAN CORPUSCULAR HGB CONC 31 G/DL (32-36); MEAN CORPUSCULAR VOLUME 87 FL (80-99)
[2020-02-08 09:17] LABS: BASOPHILS % (AUTO) 0 % (0-10); EOSINOPHILS # (AUTO) 0.3 10^3/uL (0.0-0.3); EOSINOPHILS % (AUTO) 3 % (0-10); LYMPHOCYTES % (AUTO) 27 % (12-44); MEAN PLATELET VOLUME 9.5 FL (7.4-10.4); MONOCYTES # (AUTO) 1.5 X 10^3 (0.0-1.0); MONOCYTES % (AUTO) 14 % (0-12); NEUTROPHILS # (AUTO) 6.2 X 10^3 (1.8-7.8); NEUTROPHILS % (AUTO) 56 % (42-75); PLATELET COUNT 299 10^3/uL (130-400)
--- NOTE | 2020-02-08 09:18 | Diagnostic Imaging Report ---
INDICATION: Respiratory distress. FINDINGS: There is limited lung volumes with poor inspiratory expansion; this results in some mild atelectatic changes in the left lung base. No alveolar infiltrate. No overt failure pattern, effusion or pneumothorax. IMPRESSION: Some crowding of the basilar lung markings and partial atelectasis with suboptimal inspiratory expansion, otherwise negative. Dictated by: Dictated on workstation # [id number]
[2020-02-08] MEDS ORDERED: LORazepam INJ 2 MG/ML (ATIVAN) VIAL ONE (09:24)
[2020-02-08] MEDS ORDERED: LORazepam INJ 2 MG/ML (ATIVAN) VIAL IVP ONE ×2 (09:30→10:15)
[2020-02-08 09:38] LABS: ALANINE AMINOTRANSFERASE 6 U/L (0-55); ALKALINE PHOSPHATASE 96 U/L (40-136); BILIRUBIN,TOTAL 0.3 MG/DL (0.1-1.0); BUN/CREATININE RATIO 39; CALCIUM 8.5 MG/DL (8.5-10.1); CARBON DIOXIDE 27 MMOL/L (21-32); CHLORIDE 101 MMOL/L (98-107); CREATININE SERUM 0.57 MG/DL (0.60-1.30); GFR ESTIMATED > 60; GLUCOSE 115 MG/DL (70-105); POTASSIUM 4.2 MMOL/L (3.6-5.0); SODIUM 140 MMOL/L (135-145)
[2020-02-08 09:39] LABS: ALBUMIN 3.3 GM/DL (3.2-4.5); TOTAL PROTEIN 6.2 GM/DL (6.4-8.2)
[2020-02-08] MEDS ORDERED: meTOprolol TARTRATE 25 MG (LOPRESSOR) TABLET PO ONE (10:00)
--- NOTE | 2020-02-08 10:30 | NUR ---
Call from [facility] Crystal Martinez RN. She states patient has to be sent into ER as he is on Hospice at but is a full code as he has a guardian and it requires a municipal court judge to authorize a request to change code status. They are in the process of getting this done but it is not signed/legalized. Crystal states status is Hospice: COPD End Stage. Guardian is a cafe operator but is not a relative, Kp Patterson.
--- NOTE | 2020-02-08 10:35 | NUR ---
Call from Ines nurse at [facility]. Explained the pt is agitated and calling out/yelling anf being treated for agitation. Pt has great waveform for O2 sats in 90's with the O2 on 8L NRB placed by EMS. EMS state pt was put on some O2 in ML. Ines, the nurse, reports there is something very wrong with him as he does not need O2 at ML. RN explained we have no long-term report and pt arrived as Hospice patient on NRB with a full code status and information needed. The EMS call was for Code Blue, CPR in progress. Nurse states he was not acting his normal and harder to arouse and we felt if something wasn't done quickly CPR will need started. The RN indicates she wants RN to speak the RN Director, Jia.
--- NOTE | 2020-02-08 10:39 | NUR ---
O2 turned off to evaluate patient sats Rm Air. SaO2 on forehead thru ED stay for warmest location and unable to remove. Wave forms seen in mid-high 90's on NRB 8 L when awake, when yelling. Pt has apneic cycles appearing like Brandan Stoke 15-20 sec every 60-90 sec and Sat monitor lose waveform and can not be interrpreted so continue observing till pt starts the deep breathing and sats return on screen mid-upper 90's.
--- NOTE | 2020-02-08 10:40 | NUR ---
Jia, feller seam operator speaking with this documentation writer now. She explains "This resident has to come to you for active treatment as he is a full code and the guardian advised us he needs treated." This RN explains we have no papers except the Facesheet from [email or web address] as that is all EMS gave us and brief report this Hospice patient does not have CPR in progress and he is on O2 for a low sat and they have seen 98%. ML explains "this is not normal and he does not wear O2." It is noted patient does have an apneic spell cyclic like apnea not a sleep apnea but ? Brandan Stoke then he arouses and breathes faster and then becomes agitated and yelling. We witness this and currently yelling at top of lungs.
--- NOTE | 2020-02-08 10:45 | NUR ---
Spoke with Suzanne the Director of [facility]. SHe reports it is a COPD end stage admit to them and they have Morphine and Atropine drops as prn. The legal guardian has the paperwork to be going before the [employer] with nurmerous manager of investigations on the case as he needed representation also as guardian. They expect a DNR order granted with Full Code overturned but not before tomorrow.
--- NOTE | 2020-02-08 10:49 | NUR ---
Patient is noted with SaO2 on Room Air 94-100% when breathing normal respirations between apneic spells <20 sec.
--- NOTE | 2020-02-08 10:53 | NUR ---
As continued phone call with nurses Ines and Jia they state ER is in correct on the Hospice status as no COPD is on file. I again report we have no records but facesheet and they report "well it was sent but EMS must of kept it." The staff report patient is on a Hospice as Dementia with declining health status. They continue to report legally they will keep sending him for declining status to ER. Asked RN's if patient had O2 via Hospice as comfort measure would they accept patient?
--- NOTE | 2020-02-08 11:20 | NUR ---
Dr spoke with Dr Dsouza and no acceptance for admit as she placed him on the Hospice on last hospital encounter. Pt needs returned to and continue with Hospice as she planned.
--- NOTE | 2020-02-08 11:40 | NUR ---
Dr Gil given phone numbers for the Guardian appointed for patient, the Director of [facility] (Suzanne GOYAL) and learning and development intern [facility] (Jia GOYAL). The plans for this patient will be discussed via Dr ronquillo.
--- NOTE | 2020-02-08 11:45 | NUR ---
This RN receiving add'l patient that is in PUI Isolation Requirement and report with Kristin GOYAL to watch over patient for the discharge planning. reports he is speaking with all three parties about the plan between them.
[2020-02-08] MEDS ORDERED: PRD50T PO (11:47)
--- NOTE | 2020-02-08 12:45 | NUR ---
EMS arriving for patient transfer back to [facility] and report given by Dr Gil.
[2020-02-08 12:59] VITALS: BP 106/58
== END 2020-02-08 13:01 | disposition home or self-care (01) ==
LOC: EDUNIT# 09:00 → ER FS 09:01
DX: J44.1 Chronic obstructive pulmonary disease with (acute) exacerbation (principal); I47.1 Supraventricular tachycardia; I48.91 Unspecified atrial fibrillation; I10 Essential (primary) hypertension; E11.9 Type 2 diabetes mellitus without complications; E78.00 Pure hypercholesterolemia, unspecified; F31.9 Bipolar disorder, unspecified; F41.9 Anxiety disorder, unspecified; Z88.0 Allergy status to penicillin; Z88.5 Allergy status to narcotic agent; Z79.01 Long term (current) use of anticoagulants; Z79.51 Long term (current) use of inhaled steroids; Z79.84 Long term (current) use of oral hypoglycemic drugs
CPT/HCPCS: 36415; 71045; 80053; 83605; 84484; 85025; 94640

== ENCOUNTER 2020-02-09 13:40 | Emergency (ER) | payer MEDICARE, MEDICAID ==
[~2020-02-09] VITALS: Ht 185.4 cm; Wt 100.0 kg
[~2020-02-09 13:40] MED LIST changes: +PRD50T PO
--- NOTE | 2020-02-09 14:05 | ED CPR ---
HPI-CPR General Source of Information: EMS History of Present Illness Date Seen by Provider: Feb 09, 2020 Time Seen by Provider: 13:40 Initial Comments 69-year-old male brought in by EMS from [facility]. He was reportedly on hospice and patient and family wanted to be a DO NOT RESUSCITATE but they did not have the official paperwork yet. Because they did not have the official paperwork the patient was treated as a full code by staff. When EMS first arrived he was in asystole. As they were giving him medication and following the ACLS protocol with epinephrine they did get return of spontaneous circulation with heartbeat. However, he never did have return of spontaneous respirations and his pupils were fixed and dilated. On arrival to the ED he had no pulse again and appeared to be in PEA and was given epinephrine. After this he had return of pulse and heartbeat but did not breath on his own and as the epinephrine wore off he lost his pulse again. At 1353 it was felt that it was a futile effort with his pupils fixed and dilated and his only response being short lived secondary to epinephrine and not sustainable. The code was called at 1353 and he was pronounced . Allergies and Home Medications Allergies Coded Allergies: Penicillins (Verified Allergy, Unknown, 09/22/19) morphine (Verified Allergy, Unknown, 09/22/19) tramadol (Verified Allergy, Unknown, 09/22/19) Home Medications Acetaminophen 500 Mg Tablet, 1,000 MG PO TID PRN for PAIN-MILD (1-4), (Reported) Allopurinol 300 Mg Tablet, 300 MG PO DAILY, (Reported) Amitriptyline HCl 50 Mg Tablet, 50 MG PO BID, (Reported) Apixaban 5 Mg Tablet, 5 MG PO BID, (Reported) Atorvastatin Calcium 10 Mg Tablet, 10 MG PO DAILY, (Reported) Cyanocobalamin (Vitamin B-12) 500 Mcg Tablet, 500 MCG PO DAILY, (Reported) Diclofenac Sodium 100 Gm Gel..gram., 1 APPLIC TD BID, (Reported) Diltiazem HCl 240 Mg Cap.er.24h, 240 MG PO HS, (Reported) Docusate Sodium 100 Mg Tablet, 100 MG PO BID, (Reported) Fluticasone Propionate 16 Gm [place].susp, 1 SPRAY NSEACH BID, (Reported) Furosemide 20 Mg Tablet, 20 MG PO DAILY, (Reported) Gabapentin 300 Mg Capsule, 300 MG PO TID, (Reported) Glycerin 1 Each Supp.rect, 1 EACH RC DAILY PRN for CONSTIPATION-8TH LINE, (Reported) Hydrocortisone 10 Mg Tablet, 10 MG PO HS, (Reported) Hydrocortisone 20 Mg Tablet, 20 MG PO DAILY, (Reported) Hydrocortisone Acetate 25 Mg Supp.rect, 25 MG RC DAILY, (Reported) USE FOR 10 DAYS- END DATE 01-16-2020 Lactulose 10 Gm/15 Ml Solution, 30 ML PO Q12H PRN for CONSTIPATION-3RD LINE, (Reported) Loratadine 10 Mg Tablet, 10 MG PO DAILY, (Reported) Lorazepam 1 Mg Tablet, 1 MG PO Q6H PRN for ANXIETY, (Reported) Magnesium Oxide 400 Mg Tablet, 400 MG PO BID, (Reported) Metformin HCl 500 Mg Tablet, 500 MG PO BID, (Reported) Methocarbamol 500 Mg Tablet, 500 MG PO QID, (Reported) Metoprolol Tartrate 50 Mg Tablet, 50 MG PO BID, (Reported) Olopatadine HCl 2.5 Ml Drops, 1 DROP OU DAILY, (Reported) Omeprazole 20 Mg Capsule.dr, 20 MG PO BID, (Reported) Oxcarbazepine 300 Mg Tablet, 300 MG PO BID, (Reported) Polyethylene Glycol 3350 17 Gm Powd.pack, 17 GM PO DAILY PRN for CONSTIPATION- 2ND LINE, (Reported) Potassium Chloride 20 Meq Tab.er.prt, 20 MEQ PO DAILY, (Reported) Prednisone 10 Mg Tab.ds.pk, 10 MG PO DAILY Take 6 tabs(60mg)daily,decrease by 1 tab(10MG)daily. Prescribed by: KEANU WHITLEY on 01/15/20 1053 Prednisone 50 Mg Tab, 50 MG PO DAILY Prescribed by: PANCHO MILLER on 02/08/20 1147 Quetiapine Fumarate 100 Mg Tablet, 100 MG PO HS, (Reported) Sennosides/Docusate Sodium 1 Each Tablet, 2 EA PO HS, (Reported) Patient Home Medication List Home Medication List Reviewed: Yes Review of Systems Review of Systems Constitutional: see HPI Other Comments full ROS not obtained due to patient coming in as a Code blue patient and not r esponsive Past Qslgksc-Leahuh-Yubchg Hx Past Med/Social Hx: Reviewed Nursing Past Med/Soc Hx Patient Social History 2nd Hand Smoke Exposure: No Recent Hopitalizations: No Past Medical History Surgeries: No Respiratory: Yes (resp failure; ) COPD Cardiac: Yes Atrial Fibrillation, High Cholesterol, Hypertension Neurological: Yes (secondary parkinsonism ) Stroke Genitourinary: Yes (hematuria ) Gastrointestinal: Yes (constipation ) Gastroesophageal Reflux Musculoskeletal: Yes (generalized weakness) Chronic Back Pain, Gout Endocrine: Yes Diabetes, Non-Insulin dep HEENT: No (allergic rhinitis ) Cancer: No Psychosocial: Yes (restlessness and agitation) Sleep Difficulties, Anxiety, Bipolar, Depression Integumentary: No Blood Disorders: No Family Medical History No Pertinent Family Hx Physical Exam Vital Signs Vital Signs - First Documented 02/09/20 02/09/20 15:05 17:52 Temp 25.0 Pulse 76 Resp 12 B/P (MAP) 83/51 (62) Pulse Ox 89 O2 Delivery Ambu Bag O2 Flow Rate 15.00 Capillary Refill : Height, Weight, BMI Height: '" Weight: lbs. oz. kg; 29.00 BMI Method: General Appearance: Chronically ill, Obese HEENT: Other (pupils fixed and dilated. Combitube in place in mouth) Respiratory: Other (equal breath sounds with ventilation using bag and combitube) Cardiovascular: Other (pulseless electrical activity initially then pulse with epinephrine but then pulseless when the epinephrine wore off) Gastrointestinal: No Pulsatile Mass, Soft Neurologic/Psychiatric: Other (pt unresponsive and combitube in place for respirations) Skin: Mottled, Pallor Progress/Results/Core Measures Results/Orders Vital Signs/I&O 02/09/20 02/09/20 15:05 17:52 Temp 25.0 Pulse 76 0 Resp 12 0 B/P (MAP) 83/51 (62) 0/0 Pulse Ox 89 0 O2 Delivery Ambu Bag O2 Flow Rate 15.00 Progress Progress Note : Progress Note 69-year-old male brought in by EMS from [facility]. He was reportedly on hospice and patient and family wanted to be a DO NOT RESUSCITATE but they did not have the official paperwork yet. Because they did not have the official paperwork the patient was treated as a full code by staff. When EMS first arrived he was in asystole. As they were giving him medication and following the ACLS protocol with epinephrine they did get return of spontaneous circulation with heartbeat. However, he never did have return of spontaneous respirations and his pupils were fixed and dilated. On arrival to the ED he had no pulse again and appeared to be in PEA and was given epinephrine. After this he had return of pulse and heartbeat but did not breath on his own and as the epinephrine wore off he lost his pulse again and was given 1 more dose of epinephrine. At 1353 it was felt that it was a futile effort with his pupils fixed and dilated and his only response being short lived secondary to epinephrine and not sustainable. The code was called at 1353 and he was pronounced . Departure Impression Primary Impression: Additional Impression: Cardiac arrest Disposition: 20 Condition: Departure-Patient Inst. Decision time for Depature: 13:53 Referrals: RONAL VYAS MD (PCP/Family) Primary Care Physician Patient Instructions: Sudden Cardiac Arrest MOHIT PENNY MD Feb 09, 2020 14:05
--- NOTE | 2020-02-09 17:51 | NUR ---
home arrived at 1740 and left at 1745. Release of body was signed and pt was transferred to them.
[2020-02-09 17:52] VITALS: BP 0/0
== END 2020-02-09 17:52 | disposition expired ==
LOC: EDUNIT# 13:40 → ER FS 13:41
DX: I46.9 Cardiac arrest, cause unspecified; J44.9 Chronic obstructive pulmonary disease, unspecified; I10 Essential (primary) hypertension; E78.00 Pure hypercholesterolemia, unspecified; F41.9 Anxiety disorder, unspecified; F31.9 Bipolar disorder, unspecified; M10.9 Gout, unspecified; K21.9 Gastro-esophageal reflux disease without esophagitis; E11.9 Type 2 diabetes mellitus without complications; E66.9 Obesity, unspecified; Z20.828 Contact with and (suspected) exposure to other viral communicable diseases; Z88.0 Allergy status to penicillin; Z88.5 Allergy status to narcotic agent; Z68.29 Body mass index [BMI] 29.0-29.9, adult; Z79.01 Long term (current) use of anticoagulants; Z79.52 Long term (current) use of systemic steroids; Z79.84 Long term (current) use of oral hypoglycemic drugs
CPT/HCPCS: 31500